=== PATIENT | male | born 1955 | race Caucasian/White ===

== ENCOUNTER → 2016-06-30 | Emergency (ER) | payer BC, OTHER ==
[~2016-06-30] MED LIST: CEPHALEXIN MONOHYDRATE 250 MG CAPSULE (FP) ONE; CEPHALEXIN MONOHYDRATE 500 MG CAPSULE (UD) PO ONE
[2016-06-30 21:43] VITALS: BMI 25.4
--- NOTE | 2016-06-30 22:13 | PDOC ---
History of Present Illness - General Chief Complaint: Urinary Problem Stated Complaint: URINARY PROBLEM/PAIN Time Seen by Provider: 06/30/16 21:37 History Source: Patient Exam Limitations: No Limitations - History of Present Illness Initial Comments: 06/30/16 22:17 61-year-old male presents to the emergency department with his daughter complaining of left scrotal pain 1 day. Patient states pain is described as 7/ 10 sharp nonradiating intermittent discomfort to the left scrotum without urinary frequency/urgency/hesitancy, hematuria, abdominal pains, flank pains, bladder or bowel dysfunction. Patient states he has recently started lifting weights for the past 2 months and is unsure whether this discomfort started while lifting weights yesterday. Patient has an appointment with his PMD in 2 days from now and his urologist in 3 days. Timing/Duration: 1-3 hours Severity: mild Associated Symptoms: reports: denies symptoms Aspirin Received prior to arrival: Yes: no aspirin today Past History - Travel Traveled outside of the country in the last 30 days: No Close contact w/someone who was outside of country & ill: No - Past Medical History Allergies/Adverse Reactions: Allergies Allergy/AdvReac Type Severity Reaction Status Date / Time No Known Allergies Allergy Verified 06/30/16 21:38 Home Medications: Ambulatory Orders Atorvastatin Ca [Lipitor] 20 mg PO HS #10 tablet 08/07/11 Levothyroxine [Synthroid -] 125 mcg PO DAILY@0700 #10 tablet 08/07/11 Metoprolol Tartrate [Lopressor -] 12.5 mg PO BID #10 tab 08/07/11 Omeprazole Magnesium [Prilosec Otc] 20 mg PO DAILY #10 tablet. 08/07/11 Anemia: No Asthma: Yes Cancer: Yes (LYMPHOMA) Cardiac Disorders: No COPD: No Kidney Stones: Yes Suicide Attempt (Hx): No Thyroid Disease: Yes - Psycho/Social/Smoking Cessation Hx Suicidal Ideation: No Smoking Status: No Smoking History: Never smoked Have you smoked in the past 12 months: No Number of Cigarettes Smoked Daily: 0 Information on smoking cessation initiated: No Hx Alcohol Use: No Drug/Substance Use Hx: No Substance Use Type: None Review of Systems - Review of Systems Able to Perform ROS?: Yes Comments:: 06/30/16 22:16 CONSTITUTIONAL: Absent: fever, chills, diaphoresis, generalized weakness, malaise, loss of appetite HEENT: Absent: rhinorrhea, nasal congestion, throat pain, throat swelling, difficulty swallowing, mouth swelling, ear pain, eye pain, visual Changes CARDIOVASCULAR: Absent: chest pain, loss of consciousness, palpitations, irregular heart rate, peripheral edema RESPIRATORY: Absent: cough, shortness of breath, dyspnea with exertion, orthopnea, wheezing, stridor, hemoptysis GASTROINTESTINAL: Absent: abdominal pain, abdominal distension, nausea, vomiting, diarrhea, constipation, melena, hematochezia GENITOURINARY: Left scrotal pain Absent: dysuria, frequency, urgency, hesitancy, hematuria, flank pain MUSCULOSKELETAL: Absent: myalgia, arthralgia, joint swelling SKIN: Absent: rash, itching, pallor HEMATOLOGIC/IMMUNOLOGIC: Absent: easy bleeding, easy bruising, lymphadenopathy, frequent infections ENDOCRINE: Absent: unexplained weight gain, unexplained weight loss, heat intolerance, cold intolerance NEUROLOGIC: Absent: headache, focal weakness or paresthesias, dizziness, unsteady gait, seizure, mental status changes, bladder or bowel incontinence PSYCHIATRIC: Absent: anxiety, depression, suicidal or homicidal ideation, hallucinations. Is the patient limited [place]er proficient: No *Physical Exam - Vital Signs Last Vital Signs Temp Pulse Resp BP Pulse Ox 99.0 F 93 H 20 147/94 99 06/30/16 21:38 06/30/16 21:38 06/30/16 21:38 06/30/16 21:38 06/30/16 21:38 - Physical Exam Comments: 06/30/16 22:16 GENERAL: Well developed, well nourished. Awake and alert. No acute distress. HEENT: Normocephalic, atraumatic. PERRLA, EOMI. No conjunctival pallor. Sclera are non- icteric. Moist mucous membranes. Oropharynx is clear. NECK: Supple. Full ROM. No JVD. Carotid pulses 2+ and symmetric, without bruits. No thyromegaly. No lymphadenopathy. CARDIOVASCULAR: Regular rate and rhythm. No murmurs, rubs, or gallops. Distal pulses are 2+ and symmetric. PULMONARY: No evidence of respiratory distress. Lungs clear to auscultation bilaterally. No wheezing, rales or rhonchi. ABDOMINAL: +left scrotum pain on palp; Neg prehn's Soft. Non-tender. Non-distended. No rebound or guarding. No organomegaly. Normoactive bowel sounds. MUSCULOSKELETAL Normal range of motion at all joints. No bony deformities or tenderness. No CVA tenderness. EXTREMITIES: No cyanosis. No clubbing. No edema. No calf tenderness. SKIN: Warm and dry. Normal capillary refill. No rashes. No jaundice. NEUROLOGICAL: Alert, awake, appropriate. Cranial nerves 2-12 intact. No deficits to light touch and temperature in face, upper extremities and lower extremities. No motor deficits in the in face, upper extremities and lower extremities. Normoreflexic in the upper and lower extremities. Normal speech. Toes are down- going bilaterally. Gait is normal without ataxia. PSYCHIATRIC: Cooperative. Good eye contact. Appropriate mood and affect. *DC/Admit/Observation/Transfer Diagnosis at time of Disposition: Epididymal mass - Discharge Dispostion Disposition: HOME Condition at time of disposition: Stable Admit: No - Referrals Referrals: STAFF,NOT ON [Primary Care Provider] - Katherine Conway MD [Non Staff, Medical] - - Patient Instructions Additional Instructions: Follow with the urologist within 48 hours. Take Tylenol for pain. You informed that you had an ultrasound of his scrotum and contents and the preliminary report shows an increased flow in the left testicle and epididymitis related to the right suggestive of epididymitis of epididymoorchitis. There is a swollen/ enlarged left epididymal head with a hypo-echo carotid nodule density in his Center measuring 1 cm. There is a heterogeneous hyperkeratotic masslike density in the center of the left testicle measuring 2 x 1.1 cm without abnormal flow. There is no evidence of testicular torsion. Return back to the emergency department for severe/persistent or worsening symptoms
[2016-06-30 23:03] LABS: URINE APPEARANCE CLEAR; URINE BILIRUBIN NEGATIVE (NEGATIVE); URINE COLOR YELLOW; URINE GLUCOSE (UA) NEGATIVE (NEGATIVE); URINE KETONE TRACE (NEGATIVE); URINE LEUK ESTERASE NEGATIVE (NEGATIVE); URINE NITRITE NEGATIVE (NEGATIVE); URINE UROBILINOGEN NEGATIVE E.U./dl (0.2-1.0)
[2016-06-30 23:22] LABS: URINE BLOOD 2+ (NEGATIVE); URINE PROTEIN 1+ (NEGATIVE)
[2016-06-30 23:25] LABS: URINE MUCUS RARE; URINE RBC 35 /hpf (0-3); URINE WBC 5 /hpf (3-5)
--- NOTE | 2016-07-01 01:13 | PDOC ---
*Physical Exam - Vital Signs Last Vital Signs Temp Pulse Resp BP Pulse Ox 99.0 F 93 H 20 147/94 99 06/30/16 21:38 06/30/16 21:38 06/30/16 21:38 06/30/16 21:38 06/30/16 21:38 ED Treatment Course - ADDITIONAL ORDERS Additional order review: Laboratory Results 06/30/16 22:49 Urine Color Yellow Urine Appearance Clear Urine pH 5.0 Ur Specific [place] 1.025 Urine Protein 1+ H Urine Glucose (UA) Negative Urine Ketones Trace H Urine Blood 2+ H Urine Nitrite Negative Urine Bilirubin Negative Urine Urobilinogen Negative Ur Leukocyte Esterase Negative Urine RBC 35 Urine WBC 5 Ur Epithelial Cells Rare Urine Mucus Rare Medical Decision Making - Medical Decision Making 07/01/16 00:58 61 yo F presenting to the ER with a complaint of left testicular pain after lifting No direct trauma No testicular swelling or erythema No fevers or chills 07/01/16 00:59 Laboratory Tests 06/30/16 22:49 Urine Blood 2+ H Urine Nitrite Negative Ur Leukocyte Esterase Negative Urine RBC 35 Urine WBC 5 U/S: Increased flow in the left testicle and epididymis relative to the right suggestive of epididymoorchitis. Swollen/enlarged epididymal head with hypoechoic nodular density in its center measuring 1 cm. "rule out abscess" There is a mass like density in th ecenter of the left testicle measuring 2 x 1.1 without abnormal flow. DD: abscess, complex collection/necrosis or mass No torsion Pt has follow up with his urologist Pt history suggestive of sudden onset of this process will discharge to home Pt to return to the Er for any other concerns or complaints *DC/Admit/Observation/Transfer Diagnosis at time of Disposition: Epididymal mass - Discharge Dispostion Disposition: HOME Condition at time of disposition: Stable - Prescriptions Prescriptions: Cephalexin Monohydrate [Keflex -] 500 mg PO Q8H #21 capsule - Referrals Referrals: STAFF,NOT ON [Primary Care Provider] - Katherine Conway MD [Non Staff, Medical] - - Patient Instructions Additional Instructions: Follow with the urologist within 48 hours. Take Tylenol for pain. You informed that you had an ultrasound of his scrotum and contents and the preliminary report shows an increased flow in the left testicle and epididymitis related to the right suggestive of epididymitis of epididymoorchitis. There is a swollen/ enlarged left epididymal head with a hypo-echo carotid nodule density in his Center measuring 1 cm. There is a heterogeneous hyperkeratotic masslike density in the center of the left testicle measuring 2 x 1.1 cm without abnormal flow. There is no evidence of testicular torsion. Return back to the emergency department for severe/persistent or worsening symptoms
[2016-07-01 02:33] VITALS: BP 156/95; PULSE 82; TEMP 98.3
--- NOTE | 2016-07-03 13:02 | PDOC ---
Patient Follow-up (Call Back) - Post ED Follow - Up Condition at time of discharge: Stable Disposition at time of original discharge: HOME Reason for Call Back: Abnwl. Microbiology - Disposition Additional Instructions/Notes: Spoke with the patient. He has seen his urologist, who started him on Ciprofloxacin for a UTI and the patient states he is already feeling better.
== END | disposition home or self-care (01) ==
LOC: JER 21:15
DX: N50.89 Other specified disorders of the male genital organs (principal); Z85.72 Personal history of non-Hodgkin lymphomas; E07.9 Disorder of thyroid, unspecified; J45.909 Unspecified asthma, uncomplicated
CPT/HCPCS: 76870-TC; 81003; 81015; 87086; 87186; 99281-25

== ENCOUNTER 2018-07-27 19:27 | Emergency (ER) | payer BC, OTHER | END 2018-07-28 01:32 | disposition home or self-care (01) | LOC: JER 07-28 01:32 | PROC: 3E0337Z Introduction of Electrolytic and Water Balance Substance into Peripheral Vein, Percutaneous Approach (ICD-10-PCS; principal; 2018-07-27) | PROC: 3E033NZ Introduction of Analgesics, Hypnotics, Sedatives into Peripheral Vein, Percutaneous Approach (ICD-10-PCS; 2018-07-27) | PROC: 3E033NZ Introduction of Analgesics, Hypnotics, Sedatives into Peripheral Vein, Percutaneous Approach (ICD-10-PCS; 2018-07-27) | PROC: 0T9B70Z Drainage of Bladder with Drainage Device, Via Natural or Artificial Opening (ICD-10-PCS; 2018-07-27) | DX: K57.32 Diverticulitis of large intestine without perforation or abscess without bleeding (principal); Z87.442 Personal history of urinary calculi; Z85.72 Personal history of non-Hodgkin lymphomas ==

== ENCOUNTER 2019-01-31 10:43 | Inpatient (IN) | payer BC, OTHER ==
[2019-01-31 10:50] VITALS: BMI 26.7
--- NOTE | 2019-01-31 11:59 | PDOC ---
History of Present Illness - General Chief Complaint: Urinary Problem Stated Complaint: BLADDER PAIN Time Seen by Provider: 01/31/19 11:21 History Source: Patient Exam Limitations: No Limitations - History of Present Illness Initial Comments: Carlin ayon is a 63 yo M w a pmh of lymphoma in remission for 14 years, right sided nephrolithiasis s/p lithotripsy (7 years ago), and diverticulitis who presents with lower abdominal pain for the past 4 days which is occasionally associated with dysuria and urgency. The patient also states he had two episodes of the chills and was worried he was getting an infection. Patient notes that he has had diminished urinary stream in the past, and has been worked up by outpatient urologist (Dr. Conway, [place]). Patient denies fevers, hematuria, flank pain, chest pain, SOB, difficulty voiding, headache, nausea, vomiting PCP: Dr. Quiroz Uro: Dr. conway PSH: Lithotripsy Social Hx: Retired security contractor. Denies smoking history, alcohol consumption, illicit drug use. Allergies: NKA, NKDA Family history: Father: prostate cancer, in 80s. Mother: noncontributory. in her 90s Past History - Past Medical History Allergies/Adverse Reactions: Allergies Allergy/AdvReac Type Severity Reaction Status Date / Time No Known Allergies Allergy Verified 01/31/19 10:49 Home Medications: Ambulatory Orders Atorvastatin Ca [Lipitor] 20 mg PO HS #10 tablet 08/07/11 Levothyroxine [Synthroid -] 125 mcg PO DAILY@0700 #10 tablet 08/07/11 Metoprolol Tartrate [Lopressor -] 12.5 mg PO BID #10 tab 08/07/11 Omeprazole Magnesium [Prilosec Otc] 20 mg PO DAILY #10 tablet. 08/07/11 Cephalexin Monohydrate [Keflex -] 500 mg PO Q8H #21 capsule 07/01/16 Sulfamethoxazole/Trimethoprim [Bactrim Ds -] 1 tab PO BID 7 Days #14 tablet metroNIDAZOLE [Flagyl -] 500 mg PO Q8H 7 Days #21 tablet 07/28/18 Anemia: No Asthma: Yes Cancer: Yes (LYMPHOMA) Cardiac Disorders: No COPD: No Kidney Stones: Yes Thyroid Disease: Yes - Immunization History Immunization Up to Date: Yes - Psycho Social/Smoking Cessation Hx Smoking Status: No Smoking History: Never smoked Have you smoked in the past 12 months: No Number of Cigarettes Smoked Daily: 0 Information on smoking cessation initiated: No Hx Alcohol Use: No Drug/Substance Use Hx: No Substance Use Type: None Review of Systems - Review of Systems Able to Perform ROS?: Yes Comments:: CONSTITUTIONAL: Present: Chills Absent: fever, no fatigue EYES: Absent: visual changes ENT: Absent: ear pain, no sore throat CARDIOVASCULAR: Absent: chest pain, no palpitations RESPIRATORY: Absent: cough, no SOB GI: Present: Abdominal pain Absent: no nausea, no vomiting, no constipation, no diarrhea GENITOURINARY: Present: dysuria, urgency Absent: no frequency, no hematuria MUSKULOSKELETAL: Absent: back pain, no arthralgia, no myalgia SKIN: Absent: rash NEURO: Absent: headache *Physical Exam - Vital Signs Last Vital Signs Temp Pulse Resp BP Pulse Ox 97.9 F 92 H 17 147/79 99 01/31/19 10:44 01/31/19 10:44 01/31/19 10:44 01/31/19 10:44 01/31/19 10:44 - Physical Exam GENERAL: Well-appearing, well-nourished. No apparent distress. HEENT: Normocephalic, atraumatic. PERRL, EOM intact. CARDIOVASCULAR: Normal S1, S2. Regular rate and rhythm. PULMONARY: No evidence of respiratory distress. Lungs clear to auscultation bilaterally. No wheezing, rales or rhonchi. ABDOMEN: There is significant suprapubid abdominal TTP. No right or left lower quadrant TTP. No CVA tenderness or flank pain. Abdomen is soft, non-distended, without rebound or guarding. EXTREMITIES: Normal ROM in all four extremities. No gross deformities. SKIN: Warm, dry. No rash NEUROLOGICAL: No focal neurological deficits. ED Treatment Course - LABORATORY CBC & Chemistry Diagram: 01/31/19 11:50 01/31/19 11:50 Medical Decision Making - Medical Decision Making Carlin ayon is a 63 yo M w a pmh of lymphoma in remission for 14 years, right sided nephrolithiasis s/p lithotripsy (7 years ago), and diverticulitis who presents with lower abdominal pain for the past 4 days which is occasionally associated with dysuria and urgency. The patient also states he had two episodes of the chills and was worried he was getting an infection. Patient notes that he has had diminished urinary stream in the past, and has been worked up by outpatient urologist (Dr. Conway, [facility]). Patient denies fevers, hematuria, flank pain, chest pain, SOB, difficulty voiding, headache, nausea, vomiting Vital Signs Temp Pulse Resp BP Pulse Ox 97.9 F 92 H 17 147/79 99 01/31/19 10:44 01/31/19 10:44 01/31/19 10:44 01/31/19 10:44 01/31/19 10:44 DDx IBNLT: UTI, pylonephritis, renal colic, hemorrhagic cystitis, electrolyte/ metabolic disturbance, GENNARO, dehydration Plan: Labs, Urine, analgesia, re-assess. Labs: Leukocytosis with left shit, elevated BUN - Will hydrate Urine: Clean and unremarkable Re-assessment: Patient persistently tender in lower abdomen Plan: CTAP CTAP: 1) pneumoperitoneum consistent w ruptured viscus 2) Suspected sigmoid diverticulitis w pelvic abscesses - Npo, IV hydration, zosyn/flagyl, pre-op labs, surgical consult Surgical consult: Dr. Patel - spoke with Dr. Patel about patient, she is aware, will follow and is coming to ED to evaluate patient. Dr. Patel spoke with Dr. Rowley and they both agree the patient is too well appearing for surgical intervention at this time. They would like the patient admitted to hospitalist for observation until sunday. Disposition: Admit to med/surg for diverticulitis Discharge - Discharge Information Problems reviewed: Yes Clinical Impression/Diagnosis: Diverticulitis of colon with perforation Qualifiers: Diverticulitis bleeding: without bleeding Qualified Code(s): K57.20 - Diverticulitis of large intestine with perforation and abscess without bleeding Condition: Stable - Admission Yes - Follow up/Referral Referrals: Jax Quiroz MD [Primary Care Provider] - - Patient Discharge Instructions - Post Discharge Activity
[2019-01-31] MEDS ORDERED: ACETAMINOPHEN 325 MG TABLET (FP) PO ONE (12:05)
[2019-01-31 12:09] LABS: BASO % 0.4 % (0-2.0); EOS % 0.7 % (0-4.5); HEMATOCRIT 46.9 % (35.4-49); HEMOGLOBIN 15.7 GM/dL (11.7-16.9); LYMPH % 9.3 % (8-40); MCH 29.5 pg (25.7-33.7); MCHC 33.6 g/dl (32.0-35.9); MEAN PLT VOLUME 11.1 fl (7.5-11.1); MONO % 8.9 % (3.8-10.2); NEUT % 80.7 % (42.8-82.8); PLATELET COUNT 130 K/MM3 (134-434); RBC 5.33 M/mm3 (4.00-5.60); RDW 13.6 % (11.9-15.9); WHITE BLOOD COUNT 11.3 K/mm3 (4.0-10.0)
--- NOTE | 2019-01-31 12:09 | PDOC ---
Attending Attestation - Resident Resident Name: Beau Ulloa - ED Attending Attestation I have performed the following: I have examined & evaluated the patient, The case was reviewed & discussed with the resident, I agree w/resident's findings & plan, Exceptions are as noted - HPI HPI: 01/31/19 12:07 Mr. Skinner is a 63 yo M w a h/o lymphoma in remission for 14 years, right sided nephrolithiasis s/p lithotripsy (7 years ago), and diverticulitis who presents with lower abdominal pain He symptoms began as back pain, he was seen by his urologist who ordered a kidney U/S (reportedly negative for hydro) He was told to increase Flomax to two pills daily (he has not done this) Last night he took 2 tabs at 6 pm Pt is scheduled for a bladder us by Urologist Pt feels as though there is a blockage of his urine flow (+) chills decreased urine flow, unable to completely empty his bladder No vomiting or diarrhea No documented fevers 01/31/19 12:14 - Physicial Exam PE: 01/31/19 12:07 GENERAL: The patient is in no acute distress. ENT: Ears normal, nares patent, oropharynx clear without exudates. Moist mucous membranes. NECK: Normal range of motion, supple LUNGS: Breath sounds equal, clear to auscultation bilaterally. No wheezes, and no crackles. HEART:Regular rate and rhythm, normal S1 and S2 without murmur, rub or gallop. ABDOMEN: Soft, suprapubic tenderness to palpation, no involuntary guarding, no rebound. EXTREMITIES: Normal range of motion, no edema. NEUROLOGICAL: Cranial nerves II through XII grossly intact. Normal speech. No focal neurological deficits. SKIN: Warm, Dry, normal turgor, no rashes or lesions noted. 01/31/19 12:17 - Critical Care Time Total Critical Care Time: 60 Critical Care Statement: The care of this patient involved high complexity decision making to prevent further life threatening deterioration of the patient 's condition and/or to evaluate & treat vital organ system(s) failure or risk of failure. - Medical Decision Making 01/31/19 12:20 Laboratory Tests 01/31/19 01/31/19 11:50 11:50 WBC 11.3 H Hgb 15.7 Hct 46.9 Plt Count 130 L D Neutrophils % 80.7 D Lymphocytes % 9.3 D Urine Blood Negative Urine Nitrite Negative Ur Leukocyte Esterase Negative 01/31/19 14:29 CT: Perforated diverticulitis, pneumoperitoneum Zosyn and Flagyl ordered We will consult surgery Will admit
[2019-01-31 12:16] LABS: URINE APPEARANCE CLEAR; URINE BILIRUBIN NEGATIVE (NEGATIVE); URINE COLOR DK YELLOW; URINE GLUCOSE (UA) NEGATIVE (NEGATIVE); URINE KETONE NEGATIVE (NEGATIVE); URINE LEUK ESTERASE NEGATIVE (NEGATIVE); URINE NITRITE NEGATIVE (NEGATIVE); URINE PROTEIN TRACE (NEGATIVE); URINE UROBILINOGEN 0.2 mg/dL (0.2-1.0)
[2019-01-31] MEDS ORDERED: ACETAMINOPHEN 325 MG TABLET (FP) ONE (12:19)
[2019-01-31 12:44] LABS: ALBUMIN 3.2 g/dl (3.4-5.0); BILIRUBIN,TOTAL 1.6 mg/dL (0.2-1); BLOOD UREA NITROGEN 22.4 mg/dL (7-18); CALCIUM 8.6 mg/dL (8.5-10.1); CREATININE 1.1 mg/dL (0.55-1.3); POTASSIUM 4.1 mmol/L (3.5-5.1)
[2019-01-31] MEDS ORDERED: SODIUM CHLORIDE 0.9% 500 ML INFUS.BAG IV ONE ×2 (13:53→14:29)
[2019-01-31] MEDS ORDERED: PIPERACILLIN/TAZOB 4.5 GM 4.5 GM in DEXTROSE 5%-WATER 100 ML IVPB ONE (14:25)
[2019-01-31] MEDS ORDERED: LACTATED RINGERS SOLUTION 1,000 ML/1,000 ML INFUS.BAG IV SCH (14:30)
[2019-01-31] MEDS ORDERED: PIPERACILLIN/TAZOB 4.5 GM 4.5 GM/100 ML BAG IVPB ONE (15:01)
--- NOTE | 2019-01-31 16:26 | CONSULT ---
Consult Consult Specialty:: General Surgery Referred by:: Tanja Ulloa Reason for Consultation:: perforated diverticulitis - History of Present Illness Chief Complaint: suprapubic pain, urinary problems, F/C History of Present Illness: 63yo M with hypothyroidism, lymphoma in remission x15 yrs, nephrolithiasis s/p lithotripsy 7yrs ago, h/o PUD many years ago, symptomatic BPH, diverticulitis ( first uncomplicated attack 07/21) treated with Bactrim/Flagyl for 7 days outpatient (declined admission), chronic upper back pain, has been experiencing chronic intermittent urinary symptoms for months (dysuria, flank pain, nocturia , incomplete emptying, frequency, urgency). About 2 weeks ago, he noted right flank pain and also suprapubic pain, though the pain seemed to move around at times, associated with subsequent subjective fevers and chills, more at night, not on consecutive days. He went to his PMD Jax Quiroz and Urologist Katherine Conway both on Sunday, and had pending bladder ultrasound and colonoscopy planned for Feb 11. Last colonoscopy was 15 years ago. He had been told prior to that to double his Flomax by Urology, but had been taking it at different times of day. Since Sunday, he was advised to take two pills at the same time in the evening, which he had been doing, without noticing much effect. He did eat about half his Thanksgiving dinner yesterday. Thought he was constipated and had hard stool yesterday, so took some Mylanta. Last night, he was hot and cold again, and today, he decided he didn't want to wait until February for the US or evaluation, so came to ER with persistent suprapubic pain. He did have a soft stool after the Mylanta. He took an aspirin this morning, which helped with the pain, as did Tylenol in the ER. In ER, he was afebrile, with wbc 11.3, left-shifted, and dehydrated by labs and UA. He had bladder/kidney US showing enlarged prostate, incomplete bladder emptying (though only 115ml prevoid -> 69ml post), and some renal cysts. He was started on IV fluids. He then had CT showing locules of pneumoperitoneum attributed to perforated sigmoid diverticulitis with two air-fluid collections, possibly abscesses, in pelvis, and enlarged prostate. IV antibiotics were also started, and surgery was asked to assess. He is seen and examined in ER holding, sitting comfortably. He indicates the pain is only suprapubic, and is mild, but notes that it initially started up at his right side, and moved around, as well as being suprapubic. He reports chronic urinary issues and upper back pain. No nausea or vomiting. He got up to void 2-3 times within an hour. He related the above history, and stated that the pain was the same as what he had felt back in July. - History Source History Provided By: Patient Limitations to Obtaining History: Poor Historian (fair historian) - Past Medical History Cardio/Vascular: No: HTN (pt denies), Hyperlipdemia (pt denies) Pulmonary: Yes: Asthma (in past) Gastrointestinal: Yes: Diverticulitis (July 2018, tx outpatient from ER ( declined admission)), Peptic Ulcer Disease (had bleeding ulcer in past) Renal/: Yes: Renal Calculi (lithotripsy 7 yrs ago) Heme/Onc: Yes: Cancer (lymphoma, in remission 15 years) Musculoskeletal: Yes: Other (chronic upper back pain, disc problems) Endocrine: Yes: Hypothyroidism - Past Surgical History Past Surgical History: Yes: Colonoscopy (15 yrs ago, none recent, was planning for early February), Upper Endoscopy (in past) Additional Surgical History: lithotripsy for right kidney stones - Alcohol/Substance Use Hx Alcohol Use: No History of Substance Use: reports: None - Smoking History Smoking history: Former smoker (3 yrs as teenager) Have you smoked in the past 12 months: No If you are a former smoker, when did you quit?: 45 yrs ago - Social History ADL: Independent Home Medications - Allergies Allergies/Adverse Reactions: Allergies Allergy/AdvReac Type Severity Reaction Status Date / Time No Known Allergies Allergy Verified 01/31/19 10:49 - Home Medications Home Medications: Ambulatory Orders Levothyroxine [Synthroid -] 125 mcg PO DAILY@0700 #10 tablet 08/07/11 Tamsulosin HCl 0.8 mg PO HS 01/31/19 Family Medical History Family Hx Cancer: Father (prostate CA, in 80s) Other Family History: mother in 90s Review of Systems - Review of Systems Constitutional: reports: Chills, Fever Eyes: reports: Other (reading glasses). denies: Recent Change in Vision HENT: denies: Difficult Swallowing, Throat Pain Neck: denies: Swollen Glands, Tenderness Cardiovascular: denies: Chest Pain, Palpitations Respiratory: denies: Cough, SOB Gastrointestinal: reports: Abdominal Pain (with hpi), Constipation (hard stool yesterday, took Mylanta, soft one after that). denies: Diarrhea, Nausea, Vomiting Genitourinary: reports: Dysuria, Flank Pain (with hpi), Frequency, Urgency, Other (incomplete emptying). denies: Burning, Hematuria, Testicular Pain Musculoskeletal: reports: Back Pain (upper, chronic). denies: Joint Pain, Muscle Pain Integumentary: denies: Change in Color, Rash Neurological: denies: Dizziness, Headache, Unsteady Gait Hematology/Lymphatic: denies: Excessive Bleeding, Swollen Glands Psychiatric: denies: Anxiety, Depression Physical Exam Vital Signs: Vital Signs Temperature 97.9 F 01/31/19 10:44 Pulse Rate 92 H 01/31/19 10:44 Respiratory Rate 17 01/31/19 10:44 Blood Pressure 147/79 01/31/19 10:44 O2 Sat by Pulse Oximetry (%) 99 01/31/19 10:44 Constitutional: Yes: Well Nourished, No Distress, Calm Eyes: Yes: Conjunctiva Clear, EOM Intact HENT: Yes: Atraumatic, Normocephalic Neck: Yes: Supple, Trachea Midline Cardiovascular: Yes: Tachycardia (mild). No: Pulse Irregular Respiratory: Yes: Regular, CTA Bilaterally Gastrointestinal: Yes: Normal Bowel Sounds, Soft, Hernia (small reducible umbilical), Tenderness (mild suprapubic focal, no rebound or guarding, no quadrant tenderness). No: Distention, Tenderness, Rebound (no peritoneal signs) ...Rectal Exam: Yes: Deferred Renal/: No: CVA Tenderness - Left, CVA Tenderness - Right Musculoskeletal: No: Joint Stiffness, Joint Swelling Extremities: No: Cool, Cyanosis Edema: No Peripheral Pulses WNL: Yes Integumentary: No: Jaundice, Rash Neurological: Yes: Alert, Oriented. No: Unsteady Gait Psychiatric: Yes: Alert, Oriented Labs: CBC, BMP 01/31/19 11:50 01/31/19 11:50 CMP Sodium 139 mmol/L (136-145) 01/31/19 11:50 Potassium 4.1 mmol/L (3.5-5.1) 01/31/19 11:50 Chloride 109 mmol/L (98-107) H 01/31/19 11:50 Carbon Dioxide 25 mmol/L (21-32) 01/31/19 11:50 Anion Gap 6 MMOL/L (8-16) L 01/31/19 11:50 BUN 22.4 mg/dL (7-18) H 01/31/19 11:50 Creatinine 1.1 mg/dL (0.55-1.3) 01/31/19 11:50 Est GFR (CKD-EPI)AfAm 81.79 01/31/19 11:50 Est GFR (CKD-EPI)NonAf 70.57 01/31/19 11:50 Random Glucose 94 mg/dL (74-106) 01/31/19 11:50 Calcium 8.6 mg/dL (8.5-10.1) 01/31/19 11:50 Total Bilirubin 1.6 mg/dL (0.2-1) H 01/31/19 11:50 AST 17 U/L (15-37) 01/31/19 11:50 ALT 41 U/L (13-61) 01/31/19 11:50 Alkaline Phosphatase 105 U/L (45-117) 01/31/19 11:50 Total Protein 7.0 g/dl (6.4-8.2) 01/31/19 11:50 Albumin 3.2 g/dl (3.4-5.0) L 01/31/19 11:50 Urine Test Results Urine Color Dk yellow 01/31/19 11:50 Urine Appearance Clear 01/31/19 11:50 Urine pH 5.0 (5.0-8.0) 01/31/19 11:50 Ur Specific [place] 1.029 (1.010-1.035) 01/31/19 11:50 Urine Protein Trace (NEGATIVE) 01/31/19 11:50 Urine Glucose (UA) Negative (NEGATIVE) 01/31/19 11:50 Urine Ketones Negative (NEGATIVE) 01/31/19 11:50 Urine Blood Negative (NEGATIVE) 01/31/19 11:50 Urine Nitrite Negative (NEGATIVE) 01/31/19 11:50 Urine Bilirubin Negative (NEGATIVE) 01/31/19 11:50 Ur Leukocyte Esterase Negative (NEGATIVE) 01/31/19 11:50 wbc with some left shift dehydrated bili slightly up Imaging - Results Cat Scan: Report Reviewed, Image Reviewed (images reviewed from today and 07/21 - sigmoid diverticulitis with likely local perforation which has sealed; locules of air above liver, but no other gross pneuomperitoneum; small air- fluid collection in pelvis possibly contained abscess near additional focus of air-fluid collection at sigmoid wall - ?intra or extraluminal? - enlarged prostate, small inguinal fat-containing hernias, fat-containing umbilical hernia , renal cysts) Ultrasound: Report Reviewed (PVR 69 with pre-void volume 115 on bladder US, enlarged prostate, renal cysts, no hydro) Problem List - Problems (1) Diverticulitis of colon with perforation Assessment/Plan: sigmoid diverticulitis with apparent sealed perforation and small pelvic abscess inaccessible to IR at this time, and too small to drain - discussed and reviewed with Dr. Cardenas admit to medicine serial exams trend labs STRICT NPO, bowel rest IV fluids - rehydrate today with crystalloid, change to maintenance tomorrow ( D5 1/2NS + 20 KCl) consult ID to continue IV antibiotics Suarez catheter to monitor output (strict I/Os), keep bladder decompressed and avoid pt straining pain meds prn - IV Tylenol if narcotics are requested, pt needs re-exam REPEAT CT abd/pelvis Sunday with PO and IV contrast - ensure enough time after PO contrast for it to reach distal sigmoid colon before scanning -- likely 2.5 - 3 hrs after done drinking or if pt starts evacuating contrast pt without peritoneal signs and only contained/sealed perforation no urgent surgical intervention indicated at this time discussed with patient that surgery could become necessary urgently or emergently, and may require temporary colostomy if needed will follow with you seen and discussed with Devyn Robins of primary team Code(s): K57.20 - DVTRCLI OF LG INT W PERFORATION AND ABSCESS W/O BLEEDING Qualifiers: Diverticulitis bleeding: without bleeding Qualified Code(s): K57.20 - Diverticulitis of large intestine with perforation and abscess without bleeding (2) Suprapubic pain Code(s): R10.2 - PELVIC AND PERINEAL PAIN (3) Dehydration Assessment/Plan: IV rehydration monitor UOP w/Suarez Code(s): E86.0 - DEHYDRATION (4) Benign prostatic hyperplasia with incomplete bladder emptying Assessment/Plan: Suarez catheter HOLD home Flomax while on strict bowel rest Code(s): N40.1 - BENIGN PROSTATIC HYPERPLASIA WITH LOWER URINARY TRACT SYMP; R39.14 - FEELING OF INCOMPLETE BLADDER EMPTYING (5) Hypothyroidism Assessment/Plan: change Synthroid to IV qam while on strict bowel rest Code(s): E03.9 - HYPOTHYROIDISM, UNSPECIFIED Qualifiers: Hypothyroidism type: unspecified Qualified Code(s): E03.9 - Hypothyroidism , unspecified (6) H/O lymphoma Code(s): Z85.79 - PRSNL HX OF [facility] OF LYMPHOID, HEMATPOETC & REL TISS
[2019-01-31 16:47] LABS: ACTIVATED PTT 28.1 SECONDS (25.2-36.5)
--- NOTE | 2019-01-31 17:11 | HP ---
<Devyn Robins - Last Filed: 01/31/19 18:44> CHIEF COMPLAINT: Abdominal pain PCP: Dr Quiroz HISTORY OF PRESENT ILLNESS: Pt is a 63 y/o M with a significant PMH of Non-Hodgkin's Lymphopma (in remission), asthma, PUD many years ago, nephrolithiasis, Diverticulitis who presented to [facility] due to abdominal pain for 4 days duration. Approximately 1 month ago pt endorse he began to experience suprapubic abdominal pain as well as right flank pain. Also endorses chills and subjective fevers. Pt states he was seen in our hospital this past July but was not admitted per EMR, he was discharged on Flagyl and Bactrim after he was diagnosed with Diverticulitis of his sigmoid colon. Pt visited his Urologist, Dr Katherine Conway and as well as his PCP Dr Quiroz who advised patient to take Tylenol for the pain. Pt currently denies chest pain, shortness of breath, nausea/vomiting, fever, numbness/ tingling, or lightheadedness. PMH as above SocialHx- Denies T/A/D SurgHx- Denies FH Father Prostate cancer Allergies: peanuts ER course was notable for: (1) Pneumoperitoneum consistent with ruptured viscous (2) Suspected sigmoid diverticulitis (3) Allergies No Known Allergies Allergy (Verified 01/31/19 10:49) HOME MEDICATIONS: Home Medications Medication Instructions Recorded Levothyroxine [Synthroid -] 125 mcg PO DAILY@0700 #10 tablet 08/07/11 Tamsulosin HCl 0.8 mg PO HS 01/31/19 REVIEW OF SYSTEMS CONSTITUTIONAL: Absent: fever, chills, diaphoresis, generalized weakness, malaise, loss of appetite, weight change HEENT: Absent: rhinorrhea, nasal congestion, throat pain, throat swelling, difficulty swallowing, mouth swelling, ear pain, eye pain, visual changes CARDIOVASCULAR: Absent: chest pain, syncope, palpitations, irregular heart rate, lightheadedness , peripheral edema RESPIRATORY: Absent: cough, shortness of breath, dyspnea with exertion, orthopnea, wheezing, stridor, hemoptysis GASTROINTESTINAL: Absent: abdominal pain, abdominal distension, nausea, vomiting, diarrhea, constipation, melena, hematochezia GENITOURINARY: Absent: dysuria, frequency, urgency, hesitancy, hematuria, flank pain, genital pain MUSCULOSKELETAL: Absent: myalgia, arthralgia, joint swelling, back pain, neck pain SKIN: Absent: rash, itching, pallor HEMATOLOGIC/IMMUNOLOGIC: Absent: easy bleeding, easy bruising, lymphadenopathy, frequent infections ENDOCRINE: Absent: unexplained weight gain, unexplained weight loss, heat intolerance, cold intolerance NEUROLOGIC: Absent: headache, focal weakness or paresthesias, dizziness, unsteady gait, seizure, mental status changes, bladder or bowel incontinence PSYCHIATRIC: Absent: anxiety, depression, suicidal or homicidal ideation, hallucinations. PHYSICAL EXAMINATION Vital Signs - 24 hr 01/31/19 10:44 Temperature 97.9 F Pulse Rate 92 H Respiratory 17 Rate Blood Pressure 147/79 O2 Sat by Pulse 99 Oximetry (%) GENERAL: NAD HEAD: Normal with no signs of trauma. EYES: EOMI Sclera Clear EARS, NOSE, THROAT: MMM NECK: Supple LUNGS: CTA b/l HEART: RRR S1S2 ABDOMEN: Not tender to deep palpation, + bowel sounds, No guarding or rigidity MUSCULOSKELETAL: FROM LOWER EXTREMITIES: No CCE NEUROLOGICAL: Cranial nerves II-XII intact. Normal speech. PSYCHIATRIC: Cooperative. Good eye contact. Appropriate mood and affect. SKIN: No rashes or lesions present Laboratory Results - last 24 hr 01/31/19 01/31/19 01/31/19 11:50 11:50 11:50 WBC 11.3 H RBC 5.33 Hgb 15.7 Hct 46.9 MCV 88.0 MCH 29.5 MCHC 33.6 RDW 13.6 Plt Count 130 L D MPV 11.1 Absolute Neuts (auto) 9.1 H Neutrophils % 80.7 D Lymphocytes % 9.3 D Monocytes % 8.9 Eosinophils % 0.7 Basophils % 0.4 Nucleated RBC % 0 PTT (Actin FS) Sodium 139 Potassium 4.1 Chloride 109 H Carbon Dioxide 25 Anion Gap 6 L BUN 22.4 H Creatinine 1.1 Est GFR (CKD-EPI)AfAm 81.79 Est GFR (CKD-EPI)NonAf 70.57 Random Glucose 94 Calcium 8.6 Total Bilirubin 1.6 H AST 17 ALT 41 Alkaline Phosphatase 105 Total Protein 7.0 Albumin 3.2 L Urine Color Dk yellow Urine Appearance Clear Urine pH 5.0 Ur Specific [place] 1.029 Urine Protein Trace Urine Glucose (UA) Negative Urine Ketones Negative Urine Blood Negative Urine Nitrite Negative Urine Bilirubin Negative Urine Urobilinogen 0.2 Ur Leukocyte Esterase Negative 01/31/19 16:18 WBC RBC Hgb Hct MCV MCH MCHC RDW Plt Count MPV Absolute Neuts (auto) Neutrophils % Lymphocytes % Monocytes % Eosinophils % Basophils % Nucleated RBC % PTT (Actin FS) 28.1 Sodium Potassium Chloride Carbon Dioxide Anion Gap BUN Creatinine Est GFR (CKD-EPI)AfAm Est GFR (CKD-EPI)NonAf Random Glucose Calcium Total Bilirubin AST ALT Alkaline Phosphatase Total Protein Albumin Urine Color Urine Appearance Urine pH Ur Specific [place] Urine Protein Urine Glucose (UA) Urine Ketones Urine Blood Urine Nitrite Urine Bilirubin Urine Urobilinogen Ur Leukocyte Esterase ASSESSMENT/PLAN: # Perforated Diverticulitis - NPO -Zosyn and Flagyl -Surgery on board- Dr Patel. appreciate recs -ID Consult -Bruce for monitoring output and bladder decompressed -Per Surgery: REPEAT CT abd/pelvis Sunday with PO and IV contrast - ensure enough time after PO contrast for it to reach distal sigmoid colon before scanning -- likely 2.5 - 3 hrs after done drinking or if pt starts evacuating contrast. #Hypothyroidism -Will switch Synthroid 125 mcg to IV Half PO dose #BPH -Will place Bruce. Will hold Flomax as bruce in. #FEN -LR@125cc/hr. Will switch to maintenance fluids D51/2NS w/ 20 mEQ tomorrow -Monitor Electrolytes -NPO #DVT ppx: -HEP SQ TID #Dispo: -Med-Surg Visit type - Emergency Visit Emergency Visit: Yes ED Registration Date: 01/31/19 Care time: The patient presented to the Emergency Department on the above date and was hospitalized for further evaluation of their emergent condition. - New Patient This patient is new to me today: Yes Date on this admission: 01/31/19 - Critical Care Critical Care patient: No ATTENDING PHYSICIAN STATEMENT I saw and evaluated the patient. I reviewed the resident's note and discussed the case with the resident. I agree with the resident's findings and plan as documented. SUBJECTIVE: OBJECTIVE: ASSESSMENT AND PLAN: <Macario Manuel - Last Filed: 02/05/19 09:05> CHIEF COMPLAINT: PCP: HISTORY OF PRESENT ILLNESS: ER course was notable for: (1) (2) (3) Recent Travel: PAST MEDICAL HISTORY: PAST SURGICAL HISTORY: Social History: Smoking: Alcohol: Drugs: Allergies No Known Allergies Allergy (Verified 01/31/19 10:49) HOME MEDICATIONS: Home Medications Medication Instructions Recorded Levothyroxine [Synthroid -] 125 mcg PO DAILY@0700 #10 tablet 08/07/11 Tamsulosin HCl 0.8 mg PO HS 01/31/19 REVIEW OF SYSTEMS CONSTITUTIONAL: Absent: fever, chills, diaphoresis, generalized weakness, malaise, loss of appetite, weight change HEENT: Absent: rhinorrhea, nasal congestion, throat pain, throat swelling, difficulty swallowing, mouth swelling, ear pain, eye pain, visual changes CARDIOVASCULAR: Absent: chest pain, syncope, palpitations, irregular heart rate, lightheadedness , peripheral edema RESPIRATORY: Absent: cough, shortness of breath, dyspnea with exertion, orthopnea, wheezing, stridor, hemoptysis GASTROINTESTINAL: Absent: abdominal pain, abdominal distension, nausea, vomiting, diarrhea, constipation, melena, hematochezia GENITOURINARY: Absent: dysuria, frequency, urgency, hesitancy, hematuria, flank pain, genital pain MUSCULOSKELETAL: Absent: myalgia, arthralgia, joint swelling, back pain, neck pain SKIN: Absent: rash, itching, pallor HEMATOLOGIC/IMMUNOLOGIC: Absent: easy bleeding, easy bruising, lymphadenopathy, frequent infections ENDOCRINE: Absent: unexplained weight gain, unexplained weight loss, heat intolerance, cold intolerance NEUROLOGIC: Absent: headache, focal weakness or paresthesias, dizziness, unsteady gait, seizure, mental status changes, bladder or bowel incontinence PSYCHIATRIC: Absent: anxiety, depression, suicidal or homicidal ideation, hallucinations. PHYSICAL EXAMINATION Vital Signs - 24 hr 01/31/19 01/31/19 01/31/19 10:44 18:28 18:34 Temperature 97.9 F 98 F Pulse Rate 92 H 79 Respiratory 17 18 Rate Blood Pressure 147/79 88/49 L O2 Sat by Pulse 99 98 Oximetry (%) 01/31/19 02/01/19 21:00 05:00 Temperature 98.5 F Pulse Rate 76 Respiratory 18 Rate Blood Pressure 145/75 O2 Sat by Pulse 98 Oximetry (%) GENERAL: Awake, alert, and fully oriented, in no acute distress. HEAD: Normal with no signs of trauma. EYES: Pupils equal, round and reactive to light, extraocular movements intact, sclera anicteric, conjunctiva clear. No lid lag. EARS, NOSE, THROAT: Ears normal, nares patent, oropharynx clear without exudates. Moist mucous membranes. NECK: Normal range of motion, supple without lymphadenopathy, JVD, or masses. LUNGS: Breath sounds equal, clear to auscultation bilaterally. No wheezes, and no crackles. No accessory muscle use. HEART: Regular rate and rhythm, normal S1 and S2 without murmur, rub or gallop. ABDOMEN: Soft, nontender, not distended, normoactive bowel sounds, no guarding, no rebound, no masses. No hepatomegaly or splenomegaly. MUSCULOSKELETAL: Normal range of motion at all joints. No bony deformities or tenderness. No CVA tenderness. UPPER EXTREMITIES: 2+ pulses, warm, well-perfused. No cyanosis. No clubbing. No peripheral edema. LOWER EXTREMITIES: 2+ pulses, warm, well-perfused. No calf tenderness. No peripheral edema. NEUROLOGICAL: Cranial nerves II-XII intact. Normal speech. Normal gait. PSYCHIATRIC: Cooperative. Good eye contact. Appropriate mood and affect. SKIN: Warm, dry, normal turgor, no rashes or lesions noted, normal capillary refill. Laboratory Results - last 24 hr 01/31/19 01/31/19 01/31/19 11:50 11:50 11:50 WBC 11.3 H RBC 5.33 Hgb 15.7 Hct 46.9 MCV 88.0 MCH 29.5 MCHC 33.6 RDW 13.6 Plt Count 130 L D MPV 11.1 Absolute Neuts (auto) 9.1 H Neutrophils % 80.7 D Lymphocytes % 9.3 D Monocytes % 8.9 Eosinophils % 0.7 Basophils % 0.4 Nucleated RBC % 0 PT with INR INR PTT (Actin FS) Sodium 139 Potassium 4.1 Chloride 109 H Carbon Dioxide 25 Anion Gap 6 L BUN 22.4 H Creatinine 1.1 Est GFR (CKD-EPI)AfAm 81.79 Est GFR (CKD-EPI)NonAf 70.57 Random Glucose 94 Calcium 8.6 Phosphorus Magnesium Total Bilirubin 1.6 H AST 17 ALT 41 Alkaline Phosphatase 105 Total Protein 7.0 Albumin 3.2 L Urine Color Dk yellow Urine Appearance Clear Urine pH 5.0 Ur Specific [place] 1.029 Urine Protein Trace Urine Glucose (UA) Negative Urine Ketones Negative Urine Blood Negative Urine Nitrite Negative Urine Bilirubin Negative Urine Urobilinogen 0.2 Ur Leukocyte Esterase Negative Blood Type Antibody Screen 01/31/19 01/31/19 02/01/19 16:18 16:18 07:53 WBC 8.7 RBC 4.76 Hgb 14.2 Hct 41.8 MCV 87.7 MCH 29.9 MCHC 34.1 RDW 13.4 Plt Count 119 L MPV 11.7 H Absolute Neuts (auto) Neutrophils % Lymphocytes % Monocytes % Eosinophils % Basophils % Nucleated RBC % PT with INR 15.00 H INR 1.27 H PTT (Actin FS) 28.1 Sodium Potassium Chloride Carbon Dioxide Anion Gap BUN Creatinine Est GFR (CKD-EPI)AfAm Est GFR (CKD-EPI)NonAf Random Glucose Calcium Phosphorus Magnesium Total Bilirubin AST ALT Alkaline Phosphatase Total Protein Albumin Urine Color Urine Appearance Urine pH Ur Specific [place] Urine Protein Urine Glucose (UA) Urine Ketones Urine Blood Urine Nitrite Urine Bilirubin Urine Urobilinogen Ur Leukocyte Esterase Blood Type A POSITIVE Antibody Screen Negative 02/01/19 02/01/19 07:53 07:53 WBC RBC Hgb Hct MCV MCH MCHC RDW Plt Count MPV Absolute Neuts (auto) Neutrophils % Lymphocytes % Monocytes % Eosinophils % Basophils % Nucleated RBC % PT with INR 18.20 H INR 1.54 H PTT (Actin FS) 28.8 Sodium 140 Potassium 4.0 Chloride 107 Carbon Dioxide 26 Anion Gap 7 L BUN 15.0 Creatinine 1.1 Est GFR (CKD-EPI)AfAm 81.79 Est GFR (CKD-EPI)NonAf 70.57 Random Glucose 84 Calcium 8.2 L Phosphorus 3.1 Magnesium 2.0 Total Bilirubin 2.9 H AST 19 ALT 39 Alkaline Phosphatase 96 Total Protein 6.1 L Albumin 2.7 L Urine Color Urine Appearance Urine pH Ur Specific [place] Urine Protein Urine Glucose (UA) Urine Ketones Urine Blood Urine Nitrite Urine Bilirubin Urine Urobilinogen Ur Leukocyte Esterase Blood Type Antibody Screen ASSESSMENT/PLAN: Patient seen on the floor; ID and sgy continue to follow. NPO, abx per ID, repeating imaging tomorrow. Problems include: -Perforated sigmoid diverticulitis, recurring (NPO, abx per ID, repeat imaging. OP scope 6-8 weeks with GI) -Hx Hypothyroidism (Holding off on IV LT4; he can miss a dose for several days. No history of profoundly uncontrolled hypothyroidism and stable) -Hx nephrolithiasis s/p remote lithotripsy (Follows with Dr. Katherine Usher) -Hx NIDDM (SSI, AC+HS if needed) -Prostatomegaly, hx BPH (Bruce inserted, moderate PVR on bladder US, continue bruce and consult uro if needed) -Hyperbilirubinemia (Fractionate bilirubin, trend CMP. Has been >2 since 2018. Consulted GI. FU Abd US to better deleate hepatobiliary structure) -Hx PUD (remote, states bleeding ulcer) -Hypoalbuminemia -Thrombocytopenia (persisting; checking HCV and HIV Ab to screen. SCDs for DVT ppx) -R/O Cirrhosis (Given coagulopathy, hypoalbuminemia, thrombocytopenia, low total protein, hyperbili will assess) Full Code ATTENDING PHYSICIAN STATEMENT I saw and evaluated the patient. I reviewed the resident's note and discussed the case with the resident. I agree with the resident's findings and plan as documented. SUBJECTIVE: OBJECTIVE: ASSESSMENT AND PLAN:
[2019-01-31 18:11] LABS: INR 1.27 (0.83-1.09)
[2019-01-31] MEDS: ACETAMINOPHEN 1000 MG/100 ML VIAL (NON FORMULARY) IVPB PRN (20:57)
[2019-01-31] MEDS ORDERED: PIPERACILLIN/TAZOBACTAM 4.5 GM VIAL IVPB ONE (22:18)
[2019-01-31] MEDS: PIPERACILLIN/TAZOB 4.5 GM 4.5 GM in DEXTROSE 5%-WATER 100 ML IVPB SCH (23:17)
[2019-02-01] MEDS ORDERED: PIPERACILLIN/TAZOB 4.5 GM 4.5 GM in DEXTROSE 5%-WATER 100 ML IVPB SCH (02:00)
[2019-02-01] MEDS ORDERED: DEXTROSE 5%-WATER 100 ML IVPB ONE ×2 (05:30→10:18)
[2019-02-01] MEDS ORDERED: PIPERACILLIN/TAZOBACTAM 4.5 GM VIAL IVPB ONE ×2 (05:30→10:18)
[2019-02-01] MEDS: PIPERACILLIN/TAZOB 4.5 GM 4.5 GM in DEXTROSE 5%-WATER 100 ML IVPB SCH ×2 (05:36→10:19)
[2019-02-01] MEDS ORDERED: LEVOTHYROXINE SODIUM 100 MCG VIAL IVPUSH SCH (07:00)
[2019-02-01 08:49] LABS: HEMATOCRIT 41.8 % (35.4-49); HEMOGLOBIN 14.2 GM/dL (11.7-16.9); MCH 29.9 pg (25.7-33.7); MCHC 34.1 g/dl (32.0-35.9); MEAN CELL VOLUME 87.7 fl (80-96); MEAN PLT VOLUME 11.7 fl (7.5-11.1); PLATELET COUNT 119 K/MM3 (134-434); RBC 4.76 M/mm3 (4.00-5.60); RDW 13.4 % (11.9-15.9); WHITE BLOOD COUNT 8.7 K/mm3 (4.0-10.0)
[2019-02-01 09:01] LABS: INR 1.54 (0.83-1.09); PROTHROMBIN TIME (PATIENT) 18.2 SEC (9.7-13.0)
[2019-02-01 09:04] LABS: ACTIVATED PTT 28.8 SECONDS (25.2-36.5)
[2019-02-01 09:21] LABS: ALBUMIN 2.7 g/dl (3.4-5.0); BILIRUBIN,TOTAL 2.9 mg/dL (0.2-1); CALCIUM 8.2 mg/dL (8.5-10.1); CREATININE 1.1 mg/dL (0.55-1.3); PHOSPHOROUS 3.1 mg/dL (2.5-4.9); TOT PROT 6.1 g/dl (6.4-8.2)
--- NOTE | 2019-02-01 10:14 | PN ---
Physical Exam: SUBJECTIVE: Patient seen and examined; pain is controlled. Discussed with surgical services last night. Per Dr. Patel we will continue IV abx per ID and continue him with strict NPO and maintenance fluids. Changing to [place] catheter will be held off due to urological history. Repeating CT with IV/PO contrast tomorrow to better visualize sigmoid colon. Dr. Patel informs me that IR is aware if the patient has a large drainable abscess and that Dr. Rowley and his service will provide coverage from Sunday Night until Sunday. He has no CP, SOB. All questions answered 10 sys ROS done and negative aside from HPI OBJECTIVE: Vital Signs Period Temp Pulse Resp BP Sys/Lambert Pulse Ox Last 24 Hr 97.9 F-98.5 F 76-92 17-18 88-147/49-79 98-99 GENERAL: The patient is awake, alert, and fully oriented, in no acute distress. HEAD: Normal with no signs of trauma. EYES: PERRL, extraocular movements intact, sclera anicteric, conjunctiva clear. No ptosis. ENT: Ears normal, nares patent, oropharynx clear without exudates, moist mucous membranes. NECK: Trachea midline, full range of motion, supple. LUNGS: Breath sounds equal, clear to auscultation bilaterally, HEART: Regular rate and rhythm, S1, S2 without murmur, rub or gallop. ABDOMEN: Soft, improved but twister tender, nondistended, diminished bowel sounds, EXTREMITIES: 2+ pulses, warm, well-perfused, no edema. NEUROLOGICAL: Cranial nerves II through XII grossly intact. Normal speech, gait not observed. PSYCH: Normal mood, normal affect. SKIN: Warm, dry, normal turgor, no rashes or lesions noted Laboratory Results - last 24 hr 01/31/19 01/31/19 01/31/19 11:50 11:50 11:50 WBC 11.3 H RBC 5.33 Hgb 15.7 Hct 46.9 MCV 88.0 MCH 29.5 MCHC 33.6 RDW 13.6 Plt Count 130 L D MPV 11.1 Absolute Neuts (auto) 9.1 H Neutrophils % 80.7 D Lymphocytes % 9.3 D Monocytes % 8.9 Eosinophils % 0.7 Basophils % 0.4 Nucleated RBC % 0 PT with INR INR PTT (Actin FS) Sodium 139 Potassium 4.1 Chloride 109 H Carbon Dioxide 25 Anion Gap 6 L BUN 22.4 H Creatinine 1.1 Est GFR (CKD-EPI)AfAm 81.79 Est GFR (CKD-EPI)NonAf 70.57 Random Glucose 94 Calcium 8.6 Phosphorus Magnesium Total Bilirubin 1.6 H AST 17 ALT 41 Alkaline Phosphatase 105 Total Protein 7.0 Albumin 3.2 L Urine Color Dk yellow Urine Appearance Clear Urine pH 5.0 Ur Specific [place] 1.029 Urine Protein Trace Urine Glucose (UA) Negative Urine Ketones Negative Urine Blood Negative Urine Nitrite Negative Urine Bilirubin Negative Urine Urobilinogen 0.2 Ur Leukocyte Esterase Negative Blood Type Antibody Screen 01/31/19 01/31/19 02/01/19 16:18 16:18 07:53 WBC 8.7 RBC 4.76 Hgb 14.2 Hct 41.8 MCV 87.7 MCH 29.9 MCHC 34.1 RDW 13.4 Plt Count 119 L MPV 11.7 H Absolute Neuts (auto) Neutrophils % Lymphocytes % Monocytes % Eosinophils % Basophils % Nucleated RBC % PT with INR 15.00 H INR 1.27 H PTT (Actin FS) 28.1 Sodium Potassium Chloride Carbon Dioxide Anion Gap BUN Creatinine Est GFR (CKD-EPI)AfAm Est GFR (CKD-EPI)NonAf Random Glucose Calcium Phosphorus Magnesium Total Bilirubin AST ALT Alkaline Phosphatase Total Protein Albumin Urine Color Urine Appearance Urine pH Ur Specific [place] Urine Protein Urine Glucose (UA) Urine Ketones Urine Blood Urine Nitrite Urine Bilirubin Urine Urobilinogen Ur Leukocyte Esterase Blood Type A POSITIVE Antibody Screen Negative 02/01/19 02/01/19 07:53 07:53 WBC RBC Hgb Hct MCV MCH MCHC RDW Plt Count MPV Absolute Neuts (auto) Neutrophils % Lymphocytes % Monocytes % Eosinophils % Basophils % Nucleated RBC % PT with INR 18.20 H INR 1.54 H PTT (Actin FS) 28.8 Sodium 140 Potassium 4.0 Chloride 107 Carbon Dioxide 26 Anion Gap 7 L BUN 15.0 Creatinine 1.1 Est GFR (CKD-EPI)AfAm 81.79 Est GFR (CKD-EPI)NonAf 70.57 Random Glucose 84 Calcium 8.2 L Phosphorus 3.1 Magnesium 2.0 Total Bilirubin 2.9 H AST 19 ALT 39 Alkaline Phosphatase 96 Total Protein 6.1 L Albumin 2.7 L Urine Color Urine Appearance Urine pH Ur Specific [place] Urine Protein Urine Glucose (UA) Urine Ketones Urine Blood Urine Nitrite Urine Bilirubin Urine Urobilinogen Ur Leukocyte Esterase Blood Type Antibody Screen Active Medications Generic Name Dose Route Start Last Admin Trade Name Rommelq PRN Reason Stop Dose Admin Acetaminophen 1,000 mg 01/31/19 17:51 01/31/19 20:57 Ofirmev Injection - IVPB 1,000 mg Q6H PRN Administration PAIN LEVEL 6-10 Lactated Ringer's 1,000 ml in 1,000 mls @ 125 mls/hr 01/31/19 14:30 01/31/19 18:02 Lactated Ringers Solution IV 125 mls/hr ASDIR MAURICIO Administration Piperacillin Sod/Tazobactam 100 mls @ 200 mls/hr 01/31/19 23:00 02/01/19 05: 36 Sod 4.5 gm/ Dextrose IVPB 02/01/19 10:29 200 mls/hr Q8H-IV MAURICIO Administration Protocol Piperacillin Sod/Tazobactam 100 mls @ 200 mls/hr 02/01/19 02:00 Sod 4.5 gm/ Dextrose IVPB Q8H-IV MAURICIO Levothyroxine Sodium 100 mcg 02/01/19 07:00 02/01/19 06:21 Synthroid Injection - IVPUSH 100 mcg DAILY@0700 MAURICIO Administration ASSESSMENT/PLAN: Patient seen on the floor; ID and sgy continue to follow. NPO, abx per ID, repeating imaging tomorrow. Problems include: -Perforated sigmoid diverticulitis, recurring (NPO, abx per ID, repeat imaging) -Hx Hypothyroidism (Holding off on IV LT4; he can miss a dose for several days. No history of profoundly uncontrolled hypothyroidism and stable) -Hx nephrolithiasis s/p remote lithotripsy (Follows with Dr. Katherine Conway -Hx NIDDM (SSI, AC+HS if needed) -Prostatomegaly, hx BPH (Bruce inserted, moderate PVR on bladder US, continue bruce and consult uro if needed) -Hyperbilirubinemia (Fractionate bilirubin, trend CMP. Has been >2 since 2018. Consulted GI. FU Abd US to better deleate hepatobiliary structure) -Hx PUD (remote, states bleeding ulcer) -Hypoalbuminemia -Thrombocytopenia (persisting; checking HCV and HIV Ab to screen. SCDs for DVT ppx) -R/O Cirrhosis (Given coagulopathy, hypoalbuminemia, thrombocytopenia, low total protein, hyperbili will assess) Full Code Visit type - Emergency Visit Emergency Visit: Yes ED Registration Date: 01/31/19 Care time: The patient presented to the Emergency Department on the above date and was hospitalized for further evaluation of their emergent condition. - New Patient This patient is new to me today: No - Critical Care Critical Care patient: No
--- NOTE | 2019-02-01 10:43 | CON.ID ---
Consult Consult Specialty:: infectious diseases Referred by:: [facility] Reason for Consultation:: abd pain,diverticulitis - History of Present Illness Chief Complaint: abd pain History of Present Illness: 63 y/o M with a significant PMH of Non-Hodgkin's Lymphopma (in remission), asthma, PUD many years ago, nephrolithiasis, Diverticulitis who presented to [facility] due to abdominal pain for 4 days duration. Approximately 1 month ago pt endorse he began to experience suprapubic abdominal pain as well as right flank pain. Also endorses chills and subjective fevers. Pt states he was seen in our hospital this past July but was not admitted per EMR, he was discharged on Flagyl and Bactrim after he was diagnosed with Diverticulitis of his sigmoid colon. patient came to the hospital and was worked up and found to ahve multiple findings currently patient looks better and says his abd pain is improving,though he is c /o of suprapubic pain - History Source History Provided By: Patient Limitations to Obtaining History: No Limitations - Past Medical History Cardio/Vascular: No: HTN (pt denies), Hyperlipdemia (pt denies) Pulmonary: Yes: Asthma (in past) Gastrointestinal: Yes: Diverticulitis (July 2018, tx outpatient from ER ( declined admission)), Peptic Ulcer Disease (had bleeding ulcer in past) Renal/: Yes: Renal Calculi (lithotripsy 7 yrs ago) Musculoskeletal: Yes: Other (chronic upper back pain, disc problems) Endocrine: Yes: Hypothyroidism - Past Surgical History Past Surgical History: Yes: Colonoscopy (15 yrs ago, none recent, was planning for early February), Upper Endoscopy (in past) Additional Surgical History: lithotripsy for right kidney stones - Alcohol/Substance Use Hx Alcohol Use: No History of Substance Use: reports: None - Smoking History Smoking history: Never smoked Have you smoked in the past 12 months: No Aproximately how many cigarettes per day: 0 If you are a former smoker, when did you quit?: 45 yrs ago - Social History ADL: Independent Home Medications - Allergies Allergies/Adverse Reactions: Allergies Allergy/AdvReac Type Severity Reaction Status Date / Time No Known Allergies Allergy Verified 01/31/19 10:49 - Home Medications Home Medications: Ambulatory Orders Levothyroxine [Synthroid -] 125 mcg PO DAILY@0700 #10 tablet 08/07/11 Tamsulosin HCl 0.8 mg PO HS 01/31/19 Review of Systems - Review of Systems Constitutional: reports: No Symptoms Eyes: reports: No Symptoms HENT: reports: No Symptoms Neck: reports: No Symptoms Cardiovascular: reports: No Symptoms Respiratory: reports: No Symptoms Gastrointestinal: reports: Abdominal Pain Genitourinary: reports: Pain Musculoskeletal: reports: No Symptoms Integumentary: reports: No Symptoms Neurological: reports: No Symptoms Endocrine: reports: No Symptoms Hematology/Lymphatic: reports: No Symptoms Psychiatric: reports: No Symptoms Physical Exam Vital Signs: Vital Signs Temperature 98.5 F 02/01/19 05:00 Pulse Rate 76 02/01/19 05:00 Respiratory Rate 18 02/01/19 05:00 Blood Pressure 145/75 02/01/19 05:00 O2 Sat by Pulse Oximetry (%) 98 01/31/19 21:00 Constitutional: Yes: Well Nourished, No Distress, Calm Eyes: Yes: Conjunctiva Clear HENT: Yes: Atraumatic, Normocephalic Neck: Yes: Supple, Trachea Midline Cardiovascular: Yes: Regular Rate and Rhythm Respiratory: Yes: Regular, CTA Bilaterally Gastrointestinal: Yes: Normal Bowel Sounds, Soft Renal/: Yes: Other (suprapubic pain) Musculoskeletal: Yes: WNL Extremities: Yes: WNL Neurological: Yes: Alert, Oriented Psychiatric: Yes: Alert, Oriented Labs: CBC, BMP 02/01/19 07:53 02/01/19 07:53 Imaging - Results Cat Scan: Report Reviewed, Image Reviewed Ultrasound: Report Reviewed, Image Reviewed Assessment/Plan Problem List - Problems (1) Diverticulitis of colon with perforation Code(s): K57.20 - DVTRCLI OF LG INT W PERFORATION AND ABSCESS W/O BLEEDING Qualifiers: Diverticulitis bleeding: without bleeding Qualified Code(s): K57.20 - Diverticulitis of large intestine with perforation and abscess without bleeding (2) Suprapubic pain Code(s): R10.2 - PELVIC AND PERINEAL PAIN (3) Dehydration Code(s): E86.0 - DEHYDRATION (4) Benign prostatic hyperplasia with incomplete bladder emptying Code(s): N40.1 - BENIGN PROSTATIC HYPERPLASIA WITH LOWER URINARY TRACT SYMP; R39.14 - FEELING OF INCOMPLETE BLADDER EMPTYING (5) Hypothyroidism Code(s): E03.9 - HYPOTHYROIDISM, UNSPECIFIED Qualifiers: Hypothyroidism type: unspecified Qualified Code(s): E03.9 - Hypothyroidism , unspecified (6) H/O lymphoma Code(s): Z85.79 - PRSNL JEFRY OF STEFFANY NOGUERA OF LYMPHOID, HEMATPOETC & REL TISS plan keep patient npo monitor closely continue iv abx hydration followup studies rest as per the team
[2019-02-01] MEDS ORDERED: LACTATED RINGERS SOLUTION 1,000 ML/1,000 ML INFUS.BAG IV SCH (14:00)
[2019-02-01] MEDS ORDERED: PHYTONADIONE 10 MG/1 ML AMP SQ ONE (14:11)
--- NOTE | 2019-02-01 15:41 | PN ---
Progress Note (short form) - Note Progress Note: Attending Surgeon Seen in f/u; covering for Dennis Patel MD; remains NPO. He has no c/o ??? VSS AF abdo-soft; flat and non tender WBC-nl IMP: stable PLAN: Continue present tx.; f/u CT scan a/p 02/02/19 and further plan pending results; d/w the patient. Juan Daniel Rowley MD FACS
[2019-02-01 16:18] LABS: ALBUMIN 3.1 g/dl (3.4-5.0); BILIRUBIN,TOTAL 3.1 mg/dL (0.2-1); BLOOD UREA NITROGEN 12.6 mg/dL (7-18); POTASSIUM 4.1 mmol/L (3.5-5.1); TOT PROT 7.1 g/dl (6.4-8.2)
--- NOTE | 2019-02-01 16:52 | PN ---
Progress Note, Physician History of Present Illness: Patient with perforated diverticulitis, clinically sealed, with small pelvic abscess, not accessible to IR. NPO/IV abx, seen and examined in bed. Also with chronic prostate issues. Does not yet have Suarez catheter. Reports pain is minimal, feeling hungry, voiding some in urinal. Stool now loose. - Current Medication List Current Medications: Active Medications Acetaminophen (Ofirmev Injection -) 1,000 mg IVPB Q6H PRN PRN Reason: PAIN LEVEL 6-10 Last Admin: 01/31/19 20:57 Dose: 1,000 mg Piperacillin Sod/Tazobactam (Sod 3.375 gm/ Dextrose) 50 mls @ 100 mls/hr IVPB Q8H-IV MAURICIO; Protocol Potassium Chloride/Dextrose/Sod Cl (D5-1/2ns+20 Meq Kcl -) 20 meq in 1,000 mls @ 125 mls/hr IV ASDIR MAURICIO - Objective Vital Signs: Vital Signs Temperature 97.8 F 02/01/19 13:26 Pulse Rate 68 02/01/19 13:26 Respiratory Rate 18 02/01/19 13:26 Blood Pressure 147/73 02/01/19 13:26 O2 Sat by Pulse Oximetry (%) 99 02/01/19 09:00 Constitutional: Yes: Well Nourished, No Distress, Calm Eyes: Yes: Conjunctiva Clear, EOM Intact HENT: Yes: Atraumatic, Normocephalic Gastrointestinal: Yes: Soft, Hernia (reducible umbilical), Tenderness (minimal suprapubic - "feels like I have to go to the bathroom"). No: Tenderness, Rebound Genitourinary: No: Suarez Present Extremities: No: Cool, Cyanosis Neurological: Yes: Alert, Oriented Labs: CBC, BMP 02/01/19 07:53 02/01/19 15:00 INR, PTT INR 1.54 (0.83-1.09) H 02/01/19 07:53 CMP Sodium 141 mmol/L (136-145) 02/01/19 15:00 Potassium 4.1 mmol/L (3.5-5.1) 02/01/19 15:00 Chloride 107 mmol/L (98-107) 02/01/19 15:00 Carbon Dioxide 25 mmol/L (21-32) 02/01/19 15:00 Anion Gap 8 MMOL/L (8-16) 02/01/19 15:00 BUN 12.6 mg/dL (7-18) 02/01/19 15:00 Creatinine 1.0 mg/dL (0.55-1.3) 02/01/19 15:00 Est GFR (CKD-EPI)AfAm 91.78 02/01/19 15:00 Est GFR (CKD-EPI)NonAf 79.19 02/01/19 15:00 Random Glucose 76 mg/dL (74-106) 02/01/19 15:00 Calcium 9.0 mg/dL (8.5-10.1) 02/01/19 15:00 Phosphorus 3.1 mg/dL (2.5-4.9) 02/01/19 07:53 Magnesium 2.0 mg/dL (1.8-2.4) 02/01/19 07:53 Total Bilirubin 3.1 mg/dL (0.2-1) H 02/01/19 15:00 Direct Bilirubin 0.6 mg/dL (0.0-0.2) H 02/01/19 15:00 AST 23 U/L (15-37) 02/01/19 15:00 ALT 46 U/L (13-61) 02/01/19 15:00 Alkaline Phosphatase 110 U/L (45-117) 02/01/19 15:00 Total Protein 7.1 g/dl (6.4-8.2) 02/01/19 15:00 Albumin 3.1 g/dl (3.4-5.0) L 02/01/19 15:00 TSH 0.45 uIU/ml (0.358-3.74) 02/01/19 15:00 Problem List - Problems (1) Diverticulitis of colon with perforation Assessment/Plan: sigmoid diverticulitis with apparent sealed perforation and small pelvic abscess inaccessible to IR at this time, and too small to drain - discussed and reviewed yesterday with Dr. Cardenas admitted to medicine serial exams trend labs STRICT NPO, bowel rest IV fluids - change to maintenance (D5 1/2NS + 20 KCl) continue IV antibiotics per ID Suarez catheter to monitor output (strict I/Os), keep bladder decompressed and avoid pt straining pain meds prn - IV Tylenol if narcotics are requested, pt needs re-exam REPEAT CT abd/pelvis Sunday with PO and IV contrast - ensure enough time after PO contrast for it to reach distal sigmoid colon before scanning -- likely 2.5 - 3 hrs after done drinking or if pt starts evacuating contrast pt without peritoneal signs and only contained/sealed perforation no urgent surgical intervention indicated at this time discussed with patient that surgery could become necessary urgently or emergently, and may require temporary colostomy if needed I will be away until SundayFebruary 05. Dr. Juan Daniel Rowley will cover for me in my absence, until my return. Code(s): K57.20 - DVTRCLI OF LG INT W PERFORATION AND ABSCESS W/O BLEEDING Qualifiers: Diverticulitis bleeding: without bleeding Qualified Code(s): K57.20 - Diverticulitis of large intestine with perforation and abscess without bleeding (2) Suprapubic pain Code(s): R10.2 - PELVIC AND PERINEAL PAIN (3) Dehydration Code(s): E86.0 - DEHYDRATION (4) Benign prostatic hyperplasia with incomplete bladder emptying Code(s): N40.1 - BENIGN PROSTATIC HYPERPLASIA WITH LOWER URINARY TRACT SYMP; R39.14 - FEELING OF INCOMPLETE BLADDER EMPTYING (5) Hypothyroidism Code(s): E03.9 - HYPOTHYROIDISM, UNSPECIFIED Qualifiers: Hypothyroidism type: unspecified Qualified Code(s): E03.9 - Hypothyroidism , unspecified (6) H/O lymphoma Code(s): Z85.79 - PRSNL HX OF MALIG NEOPLM OF LYMPHOID, HEMATPOETC & REL TISS
[2019-02-01] MEDS ORDERED: DEXTROSE 5%-WATER - 50 ML IVPB ONE (17:28)
[2019-02-01] MEDS ORDERED: PIPERACILLIN/TAZOBACTAM 3.375 GM VIAL IVPB ONE (17:28)
[2019-02-01] MEDS: D5-1/2NS+20 MEQ KCL - 20 MEQ/1,000 ML INFUS.BAG IV SCH (17:31)
[2019-02-01] MEDS: PIPERACILLIN/TAZOB 3.375 GM 3.375 GM in DEXTROSE 5%-WATER - 50 ML IVPB SCH (17:33)
--- NOTE | 2019-02-01 19:00 | CON.GI ---
Consult - History of Present Illness History of Present Illness: 63yo M with hypothyroidism, lymphoma in remission x15 yrs, nephrolithiasis s/p lithotripsy 7yrs ago, h/o PUD many years ago, symptomatic BPH, diverticulitis ( first uncomplicated attack 07/21) treated with Bactrim/Flagyl for 7 days outpatient (declined admission), chronic upper back pain, has been experiencing chronic intermittent urinary symptoms for months (dysuria, flank pain, nocturia , incomplete emptying, frequency, urgency). About 2 weeks ago, he noted right flank pain and also suprapubic pain, though the pain seemed to move around at times, associated with subsequent subjective fevers and chills, more at night, not on consecutive days. He went to his PMD Jax Quiroz and Urologist Katherine Conway both on Sunday, and had pending bladder ultrasound and colonoscopy planned for Feb 11. Last colonoscopy was 15 years ago In ER, he was afebrile, with wbc 11.3, left-shifted, and dehydrated by labs and UA. He had bladder/kidney US showing enlarged prostate, incomplete bladder emptying (though only 115ml prevoid -> 69ml post), and some renal cysts. He was started on IV fluids. He then had CT showing locules of pneumoperitoneum attributed to perforated sigmoid diverticulitis with two air-fluid collections, possibly abscesses, in pelvis, and enlarged prostate. IV antibiotics were also started, and surgery was asked to assess. - Past Medical History Cardio/Vascular: No: HTN (pt denies), Hyperlipdemia (pt denies) Pulmonary: Yes: Asthma (in past) Gastrointestinal: Yes: Diverticulitis (July 2018, tx outpatient from ER ( declined admission)), Peptic Ulcer Disease (had bleeding ulcer in past) Renal/: Yes: Renal Calculi (lithotripsy 7 yrs ago) Musculoskeletal: Yes: Other (chronic upper back pain, disc problems) Endocrine: Yes: Hypothyroidism - Past Surgical History Past Surgical History: Yes: Colonoscopy (15 yrs ago, none recent, was planning for early February), Upper Endoscopy (in past) Additional Surgical History: lithotripsy for right kidney stones - Alcohol/Substance Use Hx Alcohol Use: No History of Substance Use: reports: None - Smoking History Smoking history: Never smoked Have you smoked in the past 12 months: No Aproximately how many cigarettes per day: 0 If you are a former smoker, when did you quit?: 45 yrs ago - Social History ADL: Independent Home Medications - Allergies Allergies/Adverse Reactions: Allergies Allergy/AdvReac Type Severity Reaction Status Date / Time No Known Allergies Allergy Verified 01/31/19 10:49 - Home Medications Home Medications: Ambulatory Orders Levothyroxine [Synthroid -] 125 mcg PO DAILY@0700 #10 tablet 08/07/11 Tamsulosin HCl 0.8 mg PO HS 01/31/19 Physical Exam-GI Vital Signs: Vital Signs Temperature 97.8 F 02/01/19 13:26 Pulse Rate 68 02/01/19 13:26 Respiratory Rate 18 02/01/19 13:26 Blood Pressure 147/73 02/01/19 13:26 O2 Sat by Pulse Oximetry (%) 99 02/01/19 09:00 Constitutional: Yes: Well Nourished Eyes: Yes: Conjunctiva Clear HENT: Yes: Atraumatic Neck: Yes: Supple Cardiovascular: Yes: Regular Rate and Rhythm Respiratory: Yes: CTA Bilaterally ...Palpate: Yes: Soft. No: Firm/Rigid, Guarding, Hepatomegaly, Mass, Pulsatile Mass, Splenomegaly, Tenderness Labs: CBC, BMP 02/01/19 07:53 02/01/19 15:00 INR, PTT INR 1.54 (0.83-1.09) H 02/01/19 07:53 Problem List - Problems (1) Diverticulitis of colon with perforation Assessment/Plan: R> will continue antibiotics' IV hydration colonoscopy in [address] Quiroz Code(s): K57.20 - DVTRCLI OF LG INT W PERFORATION AND ABSCESS W/O BLEEDING Qualifiers: Diverticulitis bleeding: without bleeding Qualified Code(s): K57.20 - Diverticulitis of large intestine with perforation and abscess without bleeding
[2019-02-01] MEDS: ACETAMINOPHEN 1000 MG/100 ML VIAL (NON FORMULARY) IVPB PRN (21:58)
[2019-02-02] MEDS ORDERED: PIPERACILLIN/TAZOBACTAM 3.375 GM VIAL IVPB ONE ×4 (02:11→16:48)
[2019-02-02] MEDS ORDERED: DEXTROSE 5%-WATER - 50 ML IVPB ONE ×4 (02:11→16:48)
[2019-02-02] MEDS: PIPERACILLIN/TAZOB 3.375 GM 3.375 GM in DEXTROSE 5%-WATER - 50 ML IVPB SCH ×3 (02:20→17:00)
[2019-02-02] MEDS: D5-1/2NS+20 MEQ KCL - 20 MEQ/1,000 ML INFUS.BAG IV SCH ×2 (02:48→12:43)
[2019-02-02 07:12] LABS: ALBUMIN 2.7 g/dl (3.4-5.0); BILIRUBIN,TOTAL 1.3 mg/dL (0.2-1); BLOOD UREA NITROGEN 11.2 mg/dL (7-18); CALCIUM 8.6 mg/dL (8.5-10.1); CREATININE 1.1 mg/dL (0.55-1.3); POTASSIUM 4.3 mmol/L (3.5-5.1); TOT PROT 6.1 g/dl (6.4-8.2)
--- NOTE | 2019-02-02 10:56 | PN ---
Progress Note, Physician History of Present Illness: patient stable doing well has foleys catheter now - Current Medication List Current Medications: Active Medications Acetaminophen (Ofirmev Injection -) 1,000 mg IVPB Q6H PRN PRN Reason: PAIN LEVEL 6-10 Last Admin: 02/01/19 21:58 Dose: 1,000 mg Piperacillin Sod/Tazobactam (Sod 3.375 gm/ Dextrose) 50 mls @ 100 mls/hr IVPB Q8H-IV MAURICIO; Protocol Last Admin: 02/02/19 10:14 Dose: 100 mls/hr Potassium Chloride/Dextrose/Sod Cl (D5-1/2ns+20 Meq Kcl -) 20 meq in 1,000 mls @ 125 mls/hr IV ASDIR MAURICIO Last Admin: 02/02/19 02:48 Dose: 125 mls/hr - Objective Vital Signs: Vital Signs Temperature 97.8 F 02/02/19 06:00 Pulse Rate 65 02/02/19 06:00 Respiratory Rate 18 02/02/19 06:00 Blood Pressure 140/83 02/02/19 06:00 O2 Sat by Pulse Oximetry (%) 99 02/01/19 21:00 Constitutional: Yes: No Distress, Calm Cardiovascular: Yes: S1, S2 Respiratory: Yes: Regular, CTA Bilaterally Gastrointestinal: Yes: Normal Bowel Sounds, Soft Genitourinary: Yes: Suarez Present Musculoskeletal: Yes: WNL Extremities: Yes: WNL Neurological: Yes: Alert, Oriented Psychiatric: Yes: Alert, Oriented Labs: CBC, BMP 02/01/19 07:53 02/02/19 05:40 INR, PTT INR 1.54 (0.83-1.09) H 02/01/19 07:53 Assessment/Plan Problem List - Problems (1) Diverticulitis of colon with perforation Code(s): K57.20 - DVTRCLI OF LG INT W PERFORATION AND ABSCESS W/O BLEEDING Qualifiers: Diverticulitis bleeding: without bleeding Qualified Code(s): K57.20 - Diverticulitis of large intestine with perforation and abscess without bleeding (2) Suprapubic pain Code(s): R10.2 - PELVIC AND PERINEAL PAIN (3) Dehydration Code(s): E86.0 - DEHYDRATION (4) Benign prostatic hyperplasia with incomplete bladder emptying Code(s): N40.1 - BENIGN PROSTATIC HYPERPLASIA WITH LOWER URINARY TRACT SYMP; R39.14 - FEELING OF INCOMPLETE BLADDER EMPTYING (5) Hypothyroidism Code(s): E03.9 - HYPOTHYROIDISM, UNSPECIFIED Qualifiers: Hypothyroidism type: unspecified Qualified Code(s): E03.9 - Hypothyroidism , unspecified (6) H/O lymphoma Code(s): Z85.79 - PRSNL HX OF MALIG NEOPLM OF LYMPHOID, HEMATPOETC & REL TISS plan keep patient npo monitor closely continue iv abx hydration followup studies rest as per the team surgery and gi on case
--- NOTE | 2019-02-02 11:01 | PN ---
Physical Exam: SUBJECTIVE: Patient seen and examined. No events reported overnight. We will obtain the repeat CT scan today with delayed transit of the oral contrast to better visualize if there is any drainable abscess. Dr. Rowley is covering. Hyperbilirubinemia improved, seen by gastroenterology who recommends scoping in 6 to 8 weeks as an outpatient. Adding on an abdominal ultrasound. 10 sys ROS done and negative aside from HPI OBJECTIVE: Vital Signs Period Temp Pulse Resp BP Sys/Lambert Pulse Ox Last 24 Hr 97.8 F-98.6 F 60-73 17-18 124-149/66-85 99 GENERAL: The patient is awake, alert, and fully oriented, in no acute distress. HEAD: Normal with no signs of trauma. EYES: PERRL, extraocular movements intact, sclera anicteric, conjunctiva clear. No ptosis. ENT: Ears normal, nares patent, oropharynx clear without exudates, moist mucous membranes. NECK: Trachea midline, full range of motion, supple. LUNGS: Breath sounds equal, clear to auscultation bilaterally, HEART: Regular rate and rhythm, S1, S2 without murmur, rub or gallop. ABDOMEN: Soft, improved but glass deposition tender, nondistended, diminished bowel sounds, EXTREMITIES: 2+ pulses, warm, well-perfused, no edema. NEUROLOGICAL: Cranial nerves II through XII grossly intact. Normal speech, gait not observed. PSYCH: Normal mood, normal affect. SKIN: Warm, dry, normal turgor, no rashes or lesions noted Laboratory Results - last 24 hr 02/01/19 02/01/19 02/02/19 15:00 15:00 05:40 Sodium 141 141 Potassium 4.1 4.3 Chloride 107 108 H Carbon Dioxide 25 27 Anion Gap 8 5 L BUN 12.6 11.2 Creatinine 1.0 1.1 Est GFR (CKD-EPI)AfAm 91.78 81.79 Est GFR (CKD-EPI)NonAf 79.19 70.57 Random Glucose 76 103 Calcium 9.0 8.6 Total Bilirubin 3.1 H 1.3 H Direct Bilirubin 0.6 H AST 23 18 ALT 46 34 Alkaline Phosphatase 110 91 Total Protein 7.1 6.1 L Albumin 3.1 L 2.7 L TSH 0.45 02/02/19 05:40 Sodium Potassium Chloride Carbon Dioxide Anion Gap BUN Creatinine Est GFR (CKD-EPI)AfAm Est GFR (CKD-EPI)NonAf Random Glucose Calcium Total Bilirubin Direct Bilirubin 0.3 H AST ALT Alkaline Phosphatase Total Protein Albumin TSH Active Medications Generic Name Dose Route Start Last Admin Trade Name Freq PRN Reason Stop Dose Admin Acetaminophen 1,000 mg 01/31/19 17:51 02/01/19 21:58 Ofirmev Injection - IVPB 1,000 mg Q6H PRN Administration PAIN LEVEL 6-10 Piperacillin Sod/Tazobactam 50 mls @ 100 mls/hr 02/01/19 18:00 02/02/19 10:14 Sod 3.375 gm/ Dextrose IVPB 100 mls/hr Q8H-IV MAURICIO Administration Protocol Potassium Chloride/Dextrose/Sod Cl 20 meq in 1,000 mls @ 125 mls/hr 02/01/19 17:00 02/02/19 02:48 D5-1/2ns+20 Meq Kcl - IV 125 mls/hr ASDIR MAURICIO Administration ASSESSMENT/PLAN: Patient seen on the floor; ID and sgy continue to follow. NPO, abx per ID, repeating imaging tomorrow. Problems include: -Perforated sigmoid diverticulitis, recurring (NPO, abx per ID, repeat imaging. OP scope 6-8 weeks with GI) -Hx Hypothyroidism (Holding off on IV LT4; he can miss a dose for several days. No history of profoundly uncontrolled hypothyroidism and stable) -Hx nephrolithiasis s/p remote lithotripsy (Follows with Dr. Katherine Conway) -Hx NIDDM (SSI, AC+HS if needed) -Prostatomegaly, hx BPH (Bruce inserted, moderate PVR on bladder US, continue bruce and consult uro if needed) -Hyperbilirubinemia (Fractionate bilirubin, trend CMP. Has been >2 since 2018. Consulted GI. FU Abd US to better deleate hepatobiliary structure) -Hx PUD (remote, states bleeding ulcer) -Hypoalbuminemia -Thrombocytopenia (persisting; checking HCV and HIV Ab to screen. SCDs for DVT ppx) -R/O Cirrhosis (Given coagulopathy, hypoalbuminemia, thrombocytopenia, low total protein, hyperbili will assess) Full Code Visit type - Emergency Visit Emergency Visit: Yes ED Registration Date: 01/31/19 Care time: The patient presented to the Emergency Department on the above date and was hospitalized for further evaluation of their emergent condition. - New Patient This patient is new to me today: No - Critical Care Critical Care patient: No
[2019-02-02 18:31] LABS: BASO % 0.3 % (0-2.0); EOS % 2.6 % (0-4.5); HEMATOCRIT 49.3 % (35.4-49); HEMOGLOBIN 16.3 GM/dL (11.7-16.9); LYMPH % 12.2 % (8-40); MCH 29.6 pg (25.7-33.7); MCHC 33.1 g/dl (32.0-35.9); MEAN CELL VOLUME 89.2 fl (80-96); MEAN PLT VOLUME 11.6 fl (7.5-11.1); NEUT % 78.9 % (42.8-82.8); PLATELET COUNT 165 K/MM3 (134-434); RBC 5.52 M/mm3 (4.00-5.60); RDW 13.4 % (11.9-15.9); WHITE BLOOD COUNT 10.8 K/mm3 (4.0-10.0)
[2019-02-02 18:57] LABS: ALBUMIN 3.5 g/dl (3.4-5.0); BILIRUBIN,TOTAL 1.6 mg/dL (0.2-1); CALCIUM 9.7 mg/dL (8.5-10.1); CREATININE 1.1 mg/dL (0.55-1.3); MAGNESIUM 2.2 mg/dL (1.8-2.4); POTASSIUM 4.8 mmol/L (3.5-5.1); TOT PROT 7.8 g/dl (6.4-8.2)
[2019-02-02] MEDS: TAMSULOSIN HCL 0.4 MG CAP PO SCH (21:11)
[2019-02-02] MEDS: ACETAMINOPHEN 1000 MG/100 ML VIAL (NON FORMULARY) IVPB PRN (22:25)
[2019-02-03] MEDS: D5-1/2NS+20 MEQ KCL - 20 MEQ/1,000 ML INFUS.BAG IV SCH ×3 (01:00→18:21)
[2019-02-03] MEDS ORDERED: DEXTROSE 5%-WATER - 50 ML IVPB ONE ×3 (01:01→17:41)
[2019-02-03] MEDS ORDERED: PIPERACILLIN/TAZOBACTAM 3.375 GM VIAL IVPB ONE ×3 (01:01→17:41)
[2019-02-03] MEDS: PIPERACILLIN/TAZOB 3.375 GM 3.375 GM in DEXTROSE 5%-WATER - 50 ML IVPB SCH ×3 (02:01→18:20)
[2019-02-03 08:22] LABS: BASO % 0.6 % (0-2.0); EOS % 5.9 % (0-4.5); HEMOGLOBIN 15.1 GM/dL (11.7-16.9); LYMPH % 13.4 % (8-40); MCH 29.8 pg (25.7-33.7); MCHC 33.7 g/dl (32.0-35.9); MEAN CELL VOLUME 88.4 fl (80-96); MEAN PLT VOLUME 11.1 fl (7.5-11.1); MONO % 7.3 % (3.8-10.2); NEUT % 72.8 % (42.8-82.8); PLATELET COUNT 141 K/MM3 (134-434); RBC 5.09 M/mm3 (4.00-5.60); RDW 13.3 % (11.9-15.9); WHITE BLOOD COUNT 7.5 K/mm3 (4.0-10.0)
[2019-02-03 08:39] LABS: BILIRUBIN,TOTAL 1.4 mg/dL (0.2-1); BLOOD UREA NITROGEN 8.6 mg/dL (7-18); CALCIUM 8.9 mg/dL (8.5-10.1); CREATININE 1.1 mg/dL (0.55-1.3); MAGNESIUM 2.3 mg/dL (1.8-2.4); POTASSIUM 4.2 mmol/L (3.5-5.1)
--- NOTE | 2019-02-03 10:58 | PN ---
Progress Note, Physician History of Present Illness: patient stable doing well - Current Medication List Current Medications: Active Medications Acetaminophen (Ofirmev Injection -) 1,000 mg IVPB Q6H PRN PRN Reason: PAIN LEVEL 6-10 Last Admin: 02/02/19 22:25 Dose: 1,000 mg Piperacillin Sod/Tazobactam (Sod 3.375 gm/ Dextrose) 50 mls @ 100 mls/hr IVPB Q8H-IV MAURICIO; Protocol Last Admin: 02/03/19 09:27 Dose: 100 mls/hr Potassium Chloride/Dextrose/Sod Cl (D5-1/2ns+20 Meq Kcl -) 20 meq in 1,000 mls @ 125 mls/hr IV ASDIR MAURICIO Last Admin: 02/03/19 09:25 Dose: 125 mls/hr Levothyroxine Sodium (Synthroid -) 125 mcg PO DAILY@0700 MAURICIO Tamsulosin HCl (Flomax -) 0.8 mg PO HS MAURICIO Last Admin: 02/02/19 21:11 Dose: 0.8 mg - Objective Vital Signs: Vital Signs Temperature 97.8 F 02/03/19 06:00 Pulse Rate 77 02/03/19 06:00 Respiratory Rate 18 02/03/19 06:00 Blood Pressure 136/75 02/03/19 06:00 O2 Sat by Pulse Oximetry (%) 99 02/02/19 21:00 Constitutional: Yes: No Distress, Calm Cardiovascular: Yes: S1, S2 Respiratory: Yes: Regular, CTA Bilaterally Gastrointestinal: Yes: Normal Bowel Sounds, Soft Genitourinary: Yes: Suarez Present Musculoskeletal: Yes: WNL Extremities: Yes: WNL Neurological: Yes: Alert, Oriented Psychiatric: Yes: Alert, Oriented Labs: CBC, BMP 02/03/19 06:30 02/03/19 06:30 INR, PTT INR 1.54 (0.83-1.09) H 02/01/19 07:53 - ....Imaging Cat Scan: Report Reviewed, Image Reviewed Assessment/Plan Problem List - Problems (1) Diverticulitis of colon with perforation Code(s): K57.20 - DVTRCLI OF LG INT W PERFORATION AND ABSCESS W/O BLEEDING Qualifiers: Diverticulitis bleeding: without bleeding Qualified Code(s): K57.20 - Diverticulitis of large intestine with perforation and abscess without bleeding (2) Suprapubic pain Code(s): R10.2 - PELVIC AND PERINEAL PAIN (3) Dehydration Code(s): E86.0 - DEHYDRATION (4) Benign prostatic hyperplasia with incomplete bladder emptying Code(s): N40.1 - BENIGN PROSTATIC HYPERPLASIA WITH LOWER URINARY TRACT SYMP; R39.14 - FEELING OF INCOMPLETE BLADDER EMPTYING (5) Hypothyroidism Code(s): E03.9 - HYPOTHYROIDISM, UNSPECIFIED Qualifiers: Hypothyroidism type: unspecified Qualified Code(s): E03.9 - Hypothyroidism , unspecified (6) H/O lymphoma Code(s): Z85.79 - PRSNL HX OF MALIG NEOPLM OF LYMPHOID, HEMATPOETC & REL TISS plan keep patient npo monitor closely continue iv abx hydration followup studies rest as per the team surgery and gi on case
[2019-02-03] MEDS: LEVOTHYROXINE NA 125 MCG TABLET (FP) PO SCH (11:21)
--- NOTE | 2019-02-03 14:52 | PN ---
Progress Note (short form) - Note Progress Note: Hospitalist Medicine Pt upset that he is not allowed to eat. "I just want to make my own decision." Case d/w pt PMD, Dr. Quiroz today, and re-explained to pt, and son at bedside. Expressed verbal understanding of plan. Vitals 02/03/19 14:36 Temperature 97.9 F Pulse Rate 67 Respiratory 18 Rate Blood Pressure 150/78 Physical Exam general: resting comfortably, in NAD HEENT: NCAT neck: supple cardio: S1, S2, RRR. no r/m/g pulm: CTA B/l, limited resp abdomen: nontender, nondistended LE: 2+ pulses, no edema neuro: reagent tender 2-12 grossly intact Laboratory Tests 02/03/19 02/03/19 06:30 06:30 WBC 7.5 Hgb 15.1 Hct 45.0 Plt Count 141 Sodium 140 Potassium 4.2 Chloride 108 H Carbon Dioxide 28 BUN 8.6 Creatinine 1.1 Total Bilirubin 1.4 H AST 36 ALT 54 Alkaline Phosphatase 110 Total Protein 7.0 Albumin 3.0 L Microbiology 01/31/19 11:50 Urine - Urine Clean Catch Urine Culture - Final NO GROWTH OBTAINED Imaging 01/31/19: Renal/bladder sono: morphologically normal kidneys and urinary bladder with no evidence of hydronephrosis or acute pathology. moderate post void residual. prostatic hypertrophy. 01/31/19: CTAP: pneumoperitoneum with ruptured viscus, suspected sigmoid diverticulitis with pelvic abscesses. clinical correlation and follow up recommended and 02/02/19: CTAP: complex collection in pelvic region compatible with diverticular abscess unchanged in size from prior study. previously noted small droplets of air compatible with pneumoperitoneum have resolved. Assessment/Plan 63 yo M w a h/o lymphoma in remission for 14 years, right sided nephrolithiasis s/p lithotripsy (7 years ago), and diverticulitis who presented with lower abdominal pain and was found to have perforated viscus/ perforated sigmoid diverticulitis. #Perforated sigmoid diverticulitis w / abscess collection -c/w zosyn (02/01) for gram (-), anaerobic coverage -IV tylenol for pain/fever -per sx team d/w IR, abscess is not accessible via procedure. to keep NPO for now -ID: Dr. Wyatt -Sx: Dr. Rowley until 02/05, Dr. Patel coverage after -c/w NPO, IVF -bruce for bladder decompression -will need colonoscopy in 6-8 weeks w/ Dr. Quiroz per GI #NIDDM -c/w ISS, BGM ACHS #BPH -c/w flomax -c/w bruce #hypothyroid -c/w synthroid #F/E/N f/u ECHO. c/w d51/2ns +20KCl 125 cc/hr per sx continue to follow lytes NPO #PPX DVT: SCD's #Dispo cont'd monitoring on med-surg plan per sx will need colonoscopy in 6-8 weeks w/ Dr. Quiroz per GI <Paige Owusu - Last Filed: 02/03/19 15:45> - Note Progress Note: Seen and examined; agree with above aside from as supplemented below by myself. Personally verified all historical information and rivera PE findings. Independently reviewed all labs and diagnostics. I discussed the case at length with the resident and consulting services. All questions answered. 10 sys ROS done and negative aside from hpi; tried to complete as best we could with underlying schizophrenia vs labs imagaing reviewed nad aao resting in bed nc at eomi perrla HR wnl, +s1/2 CTAB, w/ sym exp NT ND +BS CN2-12 wnl, no fnd tangential thoughts ASSESSMENT/PLAN: Patient seen on the floor; ID and sgy continue to follow. NPO, abx per ID, repeating imaging tomorrow. Problems include: -Perforated sigmoid diverticulitis, recurring (NPO, abx per ID, repeat imaging. OP scope 6-8 weeks with GI) -Hx Hypothyroidism (Holding off on IV LT4; he can miss a dose for several days. No history of profoundly uncontrolled hypothyroidism and stable) -Hx nephrolithiasis s/p remote lithotripsy (Follows with Dr. Katherine Conway) -Hx NIDDM (SSI, AC+HS if needed) -Prostatomegaly, hx BPH (Bruce inserted, moderate PVR on bladder US, continue bruce and consult uro if needed) -Hyperbilirubinemia (Fractionate bilirubin, trend CMP. Has been >2 since 2018. Consulted GI. FU Abd US to better deleate hepatobiliary structure) -Hx PUD (remote, states bleeding ulcer) -Hypoalbuminemia -Thrombocytopenia (persisting; checking HCV and HIV Ab to screen. SCDs for DVT ppx) -R/O Cirrhosis (Given coagulopathy, hypoalbuminemia, thrombocytopenia, low total protein, hyperbili will assess) Full Code <Macario Manuel - Last Filed: 02/05/19 09:06>
--- NOTE | 2019-02-03 15:17 | PN ---
Progress Note (short form) - Note Progress Note: Pt seen and examined on AM rounds. Reports he is feeling well. Denies abdo pain. Reports normal BM yesterday, passing flatus. Ambulating without issue. NPO Case d/w IR, Dr Sanders. Abscess not accessible to drainage at this time due to size/location. Broad spectrum abx per ID Keep npo at this time Will continue to follow d.w attending Dr Rowley
--- NOTE | 2019-02-03 16:24 | ECHO ---
Name: DESHAUNMICHELLE Exam:Adult Echocardiogram Study Date: 02/03/2019 11:53 AM Age: 63 yrs Height: 69 in Weight: 180 lb BSA: 2.0 m2 MMode/2D Measurements & Calculations IVSd: 1.0 cm Ao root diam: 3.1 cm LVIDd: 4.5 cm LA dimension: 3.4 cm LVIDs: 3.0 cm LVPWd: 1.1 cm LVPWs: 1.2 cm EDV(Teich): 92.9 ml ESV(Teich): 36.0 ml LAV (MOD-bp): 46.0 ml Doppler Measurements & Calculations MV E max navarro: 64.2 cm/sec Ao V2 max: 121.1 cm/sec MV A max navarro: 80.0 cm/sec Ao max P.9 mmHg MV E/A: 0.80 MV dec time: 0.25 sec LV V1 max P.8 mmHg TR max navarro: 254.5 cm/sec LV V1 max: 130.8 cm/sec TR max P.9 mmHg PA V2 max: 114.7 cm/sec Med Peak E' Navarro: 4.6 cm/sec PA max P.3 mmHg Med E/e': 13.9 Lat Peak E' Navarro: 8.0 cm/sec Lat E/e': 8.0 Procedure A complete two-dimensional transthoracic echocardiogram was performed (2D, M-mode, Doppler and color flow Doppler). Left Ventricle The left ventricle is normal in size. Left ventricular systolic function is normal. Ejection Fraction = 60- 65%. Grade I diastolic dysfunction, (abnormal relaxation pattern). Ratio E/E'= 14. No regional wall m otion abnormalities noted. Right Ventricle The right ventricle is normal size. The right ventricular systolic function is normal. RV systolic TD I is 17 cm/s. Atria The left atrial size is normal. Right atrial size is normal. Mitral Valve The mitral valve is normal in structure and function. There is mild mitral regurgitation. Tricuspid Valve The tricuspid valve is normal in structure and function. There is mild to moderate tricuspid regurgit ation. Right ventricular systolic pressure is normal. Aortic Valve The aortic valve is normal in structure and function. No aortic regurgitation is present. Pulmonic Valve The pulmonic valve is not well visualized. Great Vessels The aortic root is normal size. Pericardium/Pleura There is no pericardial effusion. Interpretation Summary The left ventricle is normal in size. Left ventricular systolic function is normal. No regional wall motion abnormalities noted. Ejection Fraction = 60-65%. Grade I diastolic dysfunction, (abnormal relaxation pattern). Ratio E/E'= 14 The right ventricular systolic function is normal. The left atrial size is normal. Right atrial size is normal. There is mild mitral regurgitation. There is mild to moderate tricuspid regurgitation. Right ventricular systolic pressure is normal. There is no pericardial effusion. Nicolás Xavier MD 02/03/2019 04:23 PM
[2019-02-03] MEDS: TAMSULOSIN HCL 0.4 MG CAP PO SCH (21:52)
[2019-02-04] MEDS ORDERED: DEXTROSE 5%-WATER - 50 ML IVPB ONE ×3 (01:19→16:56)
[2019-02-04] MEDS ORDERED: PIPERACILLIN/TAZOBACTAM 3.375 GM VIAL IVPB ONE ×3 (01:19→16:56)
[2019-02-04] MEDS: ACETAMINOPHEN 1000 MG/100 ML VIAL (NON FORMULARY) IVPB PRN (01:25)
[2019-02-04] MEDS: PIPERACILLIN/TAZOB 3.375 GM 3.375 GM in DEXTROSE 5%-WATER - 50 ML IVPB SCH ×3 (01:26→17:11)
[2019-02-04] MEDS: LEVOTHYROXINE NA 125 MCG TABLET (FP) PO SCH (06:09)
[2019-02-04] MEDS: D5-1/2NS+20 MEQ KCL - 20 MEQ/1,000 ML INFUS.BAG IV SCH ×2 (06:16→17:11)
[2019-02-04 08:31] LABS: BASO % 0.7 % (0-2.0); EOS % 8.1 % (0-4.5); HEMATOCRIT 45.1 % (35.4-49); LYMPH % 14.5 % (8-40); MCH 29.4 pg (25.7-33.7); MCHC 33.2 g/dl (32.0-35.9); MEAN CELL VOLUME 88.7 fl (80-96); MEAN PLT VOLUME 10.9 fl (7.5-11.1); MONO % 6.3 % (3.8-10.2); NEUT % 70.4 % (42.8-82.8); PLATELET COUNT 132 K/MM3 (134-434); RBC 5.08 M/mm3 (4.00-5.60); RDW 13.3 % (11.9-15.9); WHITE BLOOD COUNT 6.2 K/mm3 (4.0-10.0)
[2019-02-04 08:38] LABS: INR 1.34 (0.83-1.09); PROTHROMBIN TIME (PATIENT) 15.8 SEC (9.7-13.0)
[2019-02-04 09:31] LABS: BLOOD UREA NITROGEN 8.4 mg/dL (7-18); CALCIUM 8.7 mg/dL (8.5-10.1); CREATININE 1.2 mg/dL (0.55-1.3); MAGNESIUM 2.2 mg/dL (1.8-2.4); PHOSPHOROUS 3.4 mg/dL (2.5-4.9); POTASSIUM 4.1 mmol/L (3.5-5.1)
--- NOTE | 2019-02-04 11:16 | PN ---
Progress Note, Physician History of Present Illness: stable no new issues - Current Medication List Current Medications: Active Medications Acetaminophen (Ofirmev Injection -) 1,000 mg IVPB Q6H PRN PRN Reason: PAIN LEVEL 6-10 Last Admin: 02/04/19 01:25 Dose: 1,000 mg Piperacillin Sod/Tazobactam (Sod 3.375 gm/ Dextrose) 50 mls @ 100 mls/hr IVPB Q8H-IV MAURICIO; Protocol Last Admin: 02/04/19 09:15 Dose: 100 mls/hr Potassium Chloride/Dextrose/Sod Cl (D5-1/2ns+20 Meq Kcl -) 20 meq in 1,000 mls @ 125 mls/hr IV ASDIR MAURICIO Last Admin: 02/04/19 06:16 Dose: 125 mls/hr Levothyroxine Sodium (Synthroid -) 125 mcg PO DAILY@0700 [facility] Last Admin: 02/04/19 06:09 Dose: 125 mcg Tamsulosin HCl (Flomax -) 0.8 mg PO HS [facility] Last Admin: 02/03/19 21:52 Dose: 0.8 mg - Objective Vital Signs: Vital Signs Temperature 97.8 F 02/04/19 10:00 Pulse Rate 62 02/04/19 10:00 Respiratory Rate 18 02/04/19 10:00 Blood Pressure 140/76 02/04/19 10:00 O2 Sat by Pulse Oximetry (%) 96 02/03/19 21:00 Constitutional: Yes: No Distress, Calm Cardiovascular: Yes: S1, S2 Respiratory: Yes: Regular, CTA Bilaterally Gastrointestinal: Yes: Normal Bowel Sounds, Soft Musculoskeletal: Yes: WNL Extremities: Yes: WNL Neurological: Yes: Alert, Oriented Psychiatric: Yes: Alert, Oriented Labs: CBC, BMP 02/04/19 07:38 02/04/19 07:38 INR, PTT INR 1.34 (0.83-1.09) H 02/04/19 07:38 Assessment/Plan Problem List - Problems (1) Diverticulitis of colon with perforation Code(s): K57.20 - DVTRCLI OF LG INT W PERFORATION AND ABSCESS W/O BLEEDING Qualifiers: Diverticulitis bleeding: without bleeding Qualified Code(s): K57.20 - Diverticulitis of large intestine with perforation and abscess without bleeding (2) Suprapubic pain Code(s): R10.2 - PELVIC AND PERINEAL PAIN (3) Dehydration Code(s): E86.0 - DEHYDRATION (4) Benign prostatic hyperplasia with incomplete bladder emptying Code(s): N40.1 - BENIGN PROSTATIC HYPERPLASIA WITH LOWER URINARY TRACT SYMP; R39.14 - FEELING OF INCOMPLETE BLADDER EMPTYING (5) Hypothyroidism Code(s): E03.9 - HYPOTHYROIDISM, UNSPECIFIED Qualifiers: Hypothyroidism type: unspecified Qualified Code(s): E03.9 - Hypothyroidism , unspecified (6) H/O lymphoma Code(s): Z85.79 - PRSNL HX OF MALIG NEOPLM OF LYMPHOID, HEMATPOETC & REL TISS plan continue iv abx hydration followup studies rest as per the team surgery and gi on case
--- NOTE | 2019-02-04 11:31 | PN ---
Progress Note (short form) - Note Progress Note: Attending Surgeon Seen in f/u; no c/o; passing flatus BM's VSS AF abdo-soft and non tender; FC remains in place WBC-nl CT scan 02/03/19 reviewed and the collection is not amenable to IRD IMP: resolving recurrent sigmoid diverticultis PLAN: Continue present tx.; trial of clear liquids; d/c FC; further plan as per Dr. Josephine Patel who will resume care today; he should ideally have an elective sigmoid colon resection once the acute process has resolved. Juan Daniel Rowley MD FACS
--- NOTE | 2019-02-04 12:01 | PN ---
Progress Note (short form) - Note Progress Note: Hospitalist Medicine States that he is feeling well. Reiterated plan to pt this AM, all questions answered Vitals 02/04/19 10:00 Temperature 97.8 F Pulse Rate 62 Respiratory 18 Rate Blood Pressure 140/76 Physical Exam general: resting comfortably, in NAD. pleasant HEENT: NCAT neck: supple cardio: S1, S2, RRR. no r/m/g pulm: CTA B/l, no accessory m usage abdomen: nontender, nondistended LE: 2+ pulses, no edema neuro: audio visual manager 2-12 grossly intact Laboratory Tests 02/04/19 02/04/19 02/04/19 07:38 07:38 07:38 WBC 6.2 Hgb 15.0 Hct 45.1 Plt Count 132 L PT with INR 15.80 H INR 1.34 H Sodium 142 Potassium 4.1 Chloride 109 H Carbon Dioxide 26 BUN 8.4 Creatinine 1.2 Random Glucose 86 Microbiology 01/31/19 11:50 Urine - Urine Clean Catch Urine Culture - Final NO GROWTH OBTAINED Imaging 01/31/19: Renal/bladder sono: morphologically normal kidneys and urinary bladder with no evidence of hydronephrosis or acute pathology. moderate post void residual. prostatic hypertrophy. 01/31/19: CTAP: pneumoperitoneum with ruptured viscus, suspected sigmoid diverticulitis with pelvic abscesses. clinical correlation and follow up recommended and 02/02/19: CTAP: complex collection in pelvic region compatible with diverticular abscess unchanged in size from prior study. previously noted small droplets of air compatible with pneumoperitoneum have resolved. Assessment/Plan 63 yo M w a h/o lymphoma in remission for 14 years, right sided nephrolithiasis s/p lithotripsy (7 years ago), and diverticulitis who presented with lower abdominal pain and was found to have perforated viscus/ perforated sigmoid diverticulitis. #Perforated sigmoid diverticulitis w / abscess collection -c/w zosyn (02/01) for gram (-), anaerobic coverage -IV tylenol for pain/fever -per sx team d/w IR, abscess is not accessible via procedure. however plan will be decided per sx -diet advanced to clears, per sx recs -ID: Dr. Wyatt -Sx: Dr. Rowley until 02/05, Dr. Patel coverage after -still on IVF -bruce d/c per sx recs -will need colonoscopy in 6-8 weeks w/ Dr. Quiroz per GI -will likely need elective sigmoid resection once acute process resolves #NIDDM -c/w ISS, BGM ACHS #BPH -c/w flomax -bruce has been d/c -bladder scan ASDIR #hypothyroid -c/w synthroid #F/E/N f/u ECHO. c/w d51/2ns +20KCl 125 cc/hr per sx continue to follow lytes clear liquid trial #PPX DVT: SCD's #Dispo cont'd monitoring on med-surg plan per sx concerning abscess will need colonoscopy in 6-8 weeks w/ Dr. Quiroz per GI will likely need elective sigmoid resection once acute process resolves <Paige Owusu - Last Filed: 02/04/19 15:01> - Note Progress Note: Seen and examined; agree with above aside from as supplemented below by myself. Personally verified all historical information and rivera PE findings. Independently reviewed all labs and diagnostics. I discussed the case at length with the resident and consulting services. All questions answered. Pain improved; was very inquisitive but actually apologetic at a point to us for any ongoing difficulty. No n/v/d. Abdominal pain is controlled with improved objective PE findings 10 sys ROS done and negative aside from hpi; tried to complete as best we could with underlying schizophrenia vs labs imagaing reviewed nad aao ambulating without issues nc at eomi perrla HR wnl, +s1/2 CTAB, w/ sym exp Minimally tender ND +BS CN2-12 wnl, no fnd tangential thoughts ASSESSMENT/PLAN: Patient seen on the floor; ID and sgy continue to follow. NPO, abx per ID, repeating imaging tomorrow. Problems include: -Perforated sigmoid diverticulitis, recurring (Diet per sgy, abx per ID, OP scope 6-8 weeks with GI. No IR drainable lesion) -Hx Hypothyroidism (Holding off on IV LT4; he can miss a dose for several days. No history of profoundly uncontrolled hypothyroidism and stable) -Hx nephrolithiasis s/p remote lithotripsy (Follows with Dr. Katherine Conway) -Hx NIDDM (SSI, AC+HS if needed) -Prostatomegaly, hx BPH (Voiding trial.) -Hyperbilirubinemia (Fractionate bilirubin, trend CMP. Has been >2 since 2018. Consulted GI. FU Abd US to better deleate hepatobiliary structure) -Hx PUD (remote, states bleeding ulcer) -Hypoalbuminemia -Thrombocytopenia (persisting; checking HCV and HIV Ab to screen. SCDs for DVT ppx) -R/O Cirrhosis (Given coagulopathy, hypoalbuminemia, thrombocytopenia, low total protein, hyperbili will assess) Full Code <Macario Manuel - Last Filed: 02/05/19 09:09>
[2019-02-04] MEDS: TAMSULOSIN HCL 0.4 MG CAP PO SCH (21:49)
[2019-02-05] MEDS: PIPERACILLIN/TAZOB 3.375 GM 3.375 GM in DEXTROSE 5%-WATER - 50 ML IVPB SCH ×3 (02:20→17:23)
[2019-02-05] MEDS ORDERED: DEXTROSE 5%-WATER - 50 ML IVPB ONE ×3 (04:18→16:39)
[2019-02-05] MEDS ORDERED: PIPERACILLIN/TAZOBACTAM 3.375 GM VIAL IVPB ONE ×4 (04:18→16:41)
[2019-02-05] MEDS: LEVOTHYROXINE NA 125 MCG TABLET (FP) PO SCH (06:15)
[2019-02-05] MEDS ORDERED: D5-1/2NS+20 MEQ KCL - 20 MEQ/1,000 ML INFUS.BAG IV SCH ×2 (07:15→11:32)
[2019-02-05 07:45] LABS: BASO % 0.7 % (0-2.0); EOS % 6.3 % (0-4.5); HEMATOCRIT 47.4 % (35.4-49); HEMOGLOBIN 15.9 GM/dL (11.7-16.9); LYMPH % 15.4 % (8-40); MCH 29.7 pg (25.7-33.7); MCHC 33.5 g/dl (32.0-35.9); MEAN CELL VOLUME 88.8 fl (80-96); MEAN PLT VOLUME 10.5 fl (7.5-11.1); MONO % 6.5 % (3.8-10.2); NEUT % 71.1 % (42.8-82.8); PLATELET COUNT 154 K/MM3 (134-434); RBC 5.34 M/mm3 (4.00-5.60); RDW 13.3 % (11.9-15.9); WHITE BLOOD COUNT 9.3 K/mm3 (4.0-10.0)
[2019-02-05 08:18] LABS: BLOOD UREA NITROGEN 5.7 mg/dL (7-18); CALCIUM 8.7 mg/dL (8.5-10.1); CREATININE 1.2 mg/dL (0.55-1.3); MAGNESIUM 2.1 mg/dL (1.8-2.4); PHOSPHOROUS 3.1 mg/dL (2.5-4.9); POTASSIUM 3.6 mmol/L (3.5-5.1)
--- NOTE | 2019-02-05 11:33 | PN ---
Progress Note, Physician History of Present Illness: stable improving abd pain much better - Current Medication List Current Medications: Active Medications Acetaminophen (Ofirmev Injection -) 1,000 mg IVPB Q6H PRN PRN Reason: PAIN LEVEL 6-10 Last Admin: 02/04/19 01:25 Dose: 1,000 mg Piperacillin Sod/Tazobactam (Sod 3.375 gm/ Dextrose) 50 mls @ 100 mls/hr IVPB Q8H-IV MAURIICO; Protocol Last Admin: 02/05/19 09:11 Dose: 100 mls/hr Potassium Chloride/Dextrose/Sod Cl (D5-1/2ns+20 Meq Kcl -) 20 meq in 1,000 mls @ 75 mls/hr IV ASDIR MAURICIO Last Admin: 02/05/19 09:11 Dose: 75 mls/hr Levothyroxine Sodium (Synthroid -) 125 mcg PO DAILY@0700 [facility] Last Admin: 02/05/19 06:15 Dose: 125 mcg Tamsulosin HCl (Flomax -) 0.8 mg PO HS [facility] Last Admin: 02/04/19 21:49 Dose: 0.8 mg - Objective Vital Signs: Vital Signs Temperature 98.2 F 02/05/19 10:00 Pulse Rate 84 02/05/19 10:00 Respiratory Rate 18 02/05/19 10:00 Blood Pressure 154/85 02/05/19 10:00 O2 Sat by Pulse Oximetry (%) 97 02/04/19 21:00 Constitutional: Yes: No Distress, Calm Cardiovascular: Yes: Regular Rate and Rhythm Respiratory: Yes: Regular, CTA Bilaterally Gastrointestinal: Yes: Normal Bowel Sounds, Soft Musculoskeletal: Yes: WNL Extremities: Yes: WNL Neurological: Yes: Alert, Oriented Psychiatric: Yes: Alert, Oriented Labs: CBC, BMP 02/05/19 06:40 02/05/19 06:40 INR, PTT INR 1.34 (0.83-1.09) H 02/04/19 07:38 Assessment/Plan Problem List - Problems (1) Diverticulitis of colon with perforation Code(s): K57.20 - DVTRCLI OF LG INT W PERFORATION AND ABSCESS W/O BLEEDING Qualifiers: Diverticulitis bleeding: without bleeding Qualified Code(s): K57.20 - Diverticulitis of large intestine with perforation and abscess without bleeding (2) Suprapubic pain Code(s): R10.2 - PELVIC AND PERINEAL PAIN (3) Dehydration Code(s): E86.0 - DEHYDRATION (4) Benign prostatic hyperplasia with incomplete bladder emptying Code(s): N40.1 - BENIGN PROSTATIC HYPERPLASIA WITH LOWER URINARY TRACT SYMP; R39.14 - FEELING OF INCOMPLETE BLADDER EMPTYING (5) Hypothyroidism Code(s): E03.9 - HYPOTHYROIDISM, UNSPECIFIED Qualifiers: Hypothyroidism type: unspecified Qualified Code(s): E03.9 - Hypothyroidism , unspecified (6) H/O lymphoma Code(s): Z85.79 - PRSNL HX OF MALIG NEOPLM OF LYMPHOID, HEMATPOETC & REL TISS plan continue iv abx can change to oral once surgery clears hydration followup studies rest as per the team
--- NOTE | 2019-02-05 11:37 | PN ---
Progress Note (short form) - Note Progress Note: Hospitalist Medicine Ambulating freely down the hallway. Tolerating clear liquid diet. Vitals 02/05/19 10:00 Temperature 98.2 F Pulse Rate 84 Respiratory 18 Rate Blood Pressure 154/85 Physical Exam general: resting comfortably, in NAD. pleasant HEENT: NCAT neck: supple cardio: S1, S2, RRR. 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 moderate post void residual. prostatic hypertrophy. 01/31/19: CTAP: pneumoperitoneum with ruptured viscus, suspected sigmoid diverticulitis with pelvic abscesses. clinical correlation and follow up recommended and 02/02/19: CTAP: complex collection in pelvic region compatible with diverticular abscess unchanged in size from prior study. previously noted small droplets of air compatible with pneumoperitoneum have resolved. Assessment/Plan 63 yo M w a h/o lymphoma in remission for 14 years, right sided nephrolithiasis s/p lithotripsy (7 years ago), and diverticulitis who presented with lower abdominal pain and was found to have perforated viscus/ perforated sigmoid diverticulitis. #Perforated sigmoid diverticulitis w / abscess collection -c/w zosyn (02/01) until cleared by sx for PO abx -IV tylenol for pain/fever -per sx team d/w IR, abscess is not accessible via procedure. however plan will be decided per sx -tolerating clear liquid diet -ID: Dr. Wyatt -Sx: Dr. Patel -have d/c IVF -will need colonoscopy in 6-8 weeks w/ Dr. Quiroz per GI -will likely need elective sigmoid resection once acute process resolves #NIDDM -c/w ISS, BGM ACHS #BPH -c/w flomax -bruce has been d/c -bladder scan ASDIR #hypothyroid -c/w synthroid #F/E/N have d/c IVF continue to follow lytes tolerating clears #PPX DVT: SCD's #Dispo plan per sx concerning abscess, still on IV abx will need colonoscopy in 6-8 weeks w/ Dr. Quiroz per GI will likely need elective sigmoid resection once acute process resolves
--- NOTE | 2019-02-05 20:40 | PN ---
Progress Note, Physician History of Present Illness: Patient with perforated diverticulitis, clinically sealed, with small pelvic abscess, not accessible to IR. Repeat CT from Sunday still showed abscess, though locules of air over liver had resolved. On IV abx per ID, seen and examined in bed. Also with chronic prostate issues. Suarez catheter now out, voiding ok per pt. Reports no pain, tolerating clears since yesterday. - Current Medication List Current Medications: Active Medications Acetaminophen (Ofirmev Injection -) 1,000 mg IVPB Q6H PRN PRN Reason: PAIN LEVEL 6-10 Last Admin: 02/04/19 01:25 Dose: 1,000 mg Piperacillin Sod/Tazobactam (Sod 3.375 gm/ Dextrose) 50 mls @ 100 mls/hr IVPB Q8H-IV [facility]; Protocol Last Admin: 02/05/19 17:23 Dose: 100 mls/hr Levothyroxine Sodium (Synthroid -) 125 mcg PO DAILY@0700 [facility] Last Admin: 02/05/19 06:15 Dose: 125 mcg Tamsulosin HCl (Flomax -) 0.8 mg PO HS [facility] Last Admin: 02/04/19 21:49 Dose: 0.8 mg - Objective Vital Signs: Vital Signs Temperature 98.1 F 02/05/19 19:53 Pulse Rate 72 02/05/19 19:53 Respiratory Rate 18 02/05/19 19:53 Blood Pressure 154/89 02/05/19 19:53 O2 Sat by Pulse Oximetry (%) 98 02/05/19 09:00 Constitutional: Yes: Well Nourished, No Distress, Calm Eyes: Yes: Conjunctiva Clear, EOM Intact HENT: Yes: Atraumatic, Normocephalic Gastrointestinal: Yes: Soft, Hernia (reducible umbilical). No: Distention, Tenderness, Tenderness, Epigastrium Genitourinary: Yes: Other (reports good stream today). No: Suarez Present, Incontinence Extremities: No: Cool, Cyanosis Integumentary: No: Jaundice, Rash Neurological: Yes: Alert, Oriented Labs: CBC, BMP 02/05/19 06:40 02/05/19 06:40 INR, PTT INR 1.34 (0.83-1.09) H 02/04/19 07:38 CMP Sodium 141 mmol/L (136-145) 02/05/19 06:40 Potassium 3.6 mmol/L (3.5-5.1) 02/05/19 06:40 Chloride 108 mmol/L (98-107) H 02/05/19 06:40 Carbon Dioxide 22 mmol/L (21-32) 02/05/19 06:40 Anion Gap 11 MMOL/L (8-16) 02/05/19 06:40 BUN 5.7 mg/dL (7-18) L 02/05/19 06:40 Creatinine 1.2 mg/dL (0.55-1.3) 02/05/19 06:40 Est GFR (CKD-EPI)AfAm 73.62 02/05/19 06:40 Est GFR (CKD-EPI)NonAf 63.52 02/05/19 06:40 Random Glucose 77 mg/dL (74-106) 02/05/19 06:40 Calcium 8.7 mg/dL (8.5-10.1) 02/05/19 06:40 Phosphorus 3.1 mg/dL (2.5-4.9) 02/05/19 06:40 Magnesium 2.1 mg/dL (1.8-2.4) 02/05/19 06:40 Total Bilirubin 1.4 mg/dL (0.2-1) H 02/03/19 06:30 Direct Bilirubin 0.3 mg/dL (0.0-0.2) H 02/02/19 05:40 AST 36 U/L (15-37) 02/03/19 06:30 ALT 54 U/L (13-61) 02/03/19 06:30 Alkaline Phosphatase 110 U/L (45-117) 02/03/19 06:30 Total Protein 7.0 g/dl (6.4-8.2) 02/03/19 06:30 Albumin 3.0 g/dl (3.4-5.0) L 02/03/19 06:30 Lipase 67 U/L (73-393) L 02/02/19 17:39 TSH 0.45 uIU/ml (0.358-3.74) 02/01/19 15:00 Problem List - Problems (1) Diverticulitis of colon with perforation Assessment/Plan: sigmoid diverticulitis with apparent sealed perforation and small pelvic abscess inaccessible to IR for drainage continue IV antibiotics per ID pain/tenderness essentially resolved tolerating clears soft, formed BM today will advance to low-residue diet in am clinically doing well may be able to switch to oral abx to complete course at home will need colonoscopy in 6-8 weeks, but may need imaging before that depending on symptoms to reevaluate for abscess resolution can discuss with patient's PMD tomorrow as well Code(s): K57.20 - DVTRCLI OF LG INT W PERFORATION AND ABSCESS W/O BLEEDING Qualifiers: Diverticulitis bleeding: without bleeding Qualified Code(s): K57.20 - Diverticulitis of large intestine with perforation and abscess without bleeding (2) Suprapubic pain Assessment/Plan: resolved Code(s): R10.2 - PELVIC AND PERINEAL PAIN (3) Dehydration Assessment/Plan: improved Code(s): E86.0 - DEHYDRATION (4) Benign prostatic hyperplasia with incomplete bladder emptying Code(s): N40.1 - BENIGN PROSTATIC HYPERPLASIA WITH LOWER URINARY TRACT SYMP; R39.14 - FEELING OF INCOMPLETE BLADDER EMPTYING (5) Hypothyroidism Code(s): E03.9 - HYPOTHYROIDISM, UNSPECIFIED Qualifiers: Hypothyroidism type: unspecified Qualified Code(s): E03.9 - Hypothyroidism , unspecified (6) H/O lymphoma Code(s): Z85.79 - PRSNL HX OF MALIG NEOPLM OF LYMPHOID, HEMATPOETC & REL TISS
[2019-02-05] MEDS: ACETAMINOPHEN 325 MG TABLET (FP) PO PRN (22:18)
[2019-02-05] MEDS: TAMSULOSIN HCL 0.4 MG CAP PO SCH (22:18)
[2019-02-06] MEDS ORDERED: PIPERACILLIN/TAZOBACTAM 3.375 GM VIAL IVPB ONE ×3 (02:14→17:19)
[2019-02-06] MEDS ORDERED: DEXTROSE 5%-WATER - 50 ML IVPB ONE ×3 (02:14→17:19)
[2019-02-06] MEDS: PIPERACILLIN/TAZOB 3.375 GM 3.375 GM in DEXTROSE 5%-WATER - 50 ML IVPB SCH ×3 (02:25→17:25)
[2019-02-06] MEDS: LEVOTHYROXINE NA 125 MCG TABLET (FP) PO SCH (06:02)
[2019-02-06 07:34] LABS: BASO % 0.5 % (0-2.0); EOS % 4.7 % (0-4.5); HEMATOCRIT 48.4 % (35.4-49); HEMOGLOBIN 16.3 GM/dL (11.7-16.9); LYMPH % 20.7 % (8-40); MCH 29.8 pg (25.7-33.7); MCHC 33.7 g/dl (32.0-35.9); MEAN CELL VOLUME 88.5 fl (80-96); MEAN PLT VOLUME 10.5 fl (7.5-11.1); MONO % 6.7 % (3.8-10.2); NEUT % 67.4 % (42.8-82.8); PLATELET COUNT 162 K/MM3 (134-434); RBC 5.46 M/mm3 (4.00-5.60); RDW 13.4 % (11.9-15.9); WHITE BLOOD COUNT 8.3 K/mm3 (4.0-10.0)
[2019-02-06 07:56] LABS: BLOOD UREA NITROGEN 5.7 mg/dL (7-18); CALCIUM 9.3 mg/dL (8.5-10.1); CREATININE 1.3 mg/dL (0.55-1.3); MAGNESIUM 2.3 mg/dL (1.8-2.4); PHOSPHOROUS 3.5 mg/dL (2.5-4.9); POTASSIUM 3.9 mmol/L (3.5-5.1)
--- NOTE | 2019-02-06 09:02 | PN ---
Progress Note, Physician History of Present Illness: stable no new issues - Current Medication List Current Medications: Active Medications Acetaminophen (Tylenol -) 650 mg PO Q6H PRN PRN Reason: PAIN LEVEL 6-10 Last Admin: 02/05/19 22:18 Dose: 650 mg Piperacillin Sod/Tazobactam (Sod 3.375 gm/ Dextrose) 50 mls @ 100 mls/hr IVPB Q8H-IV [facility]; Protocol Last Admin: 02/06/19 02:25 Dose: 100 mls/hr Levothyroxine Sodium (Synthroid -) 125 mcg PO DAILY@0700 [facility] Last Admin: 02/06/19 06:02 Dose: 125 mcg Tamsulosin HCl (Flomax -) 0.8 mg PO HS [facility] Last Admin: 02/05/19 22:18 Dose: 0.8 mg - Objective Vital Signs: Vital Signs Temperature 98 F 02/06/19 06:00 Pulse Rate 60 02/06/19 06:00 Respiratory Rate 17 02/06/19 06:00 Blood Pressure 127/67 02/06/19 06:00 O2 Sat by Pulse Oximetry (%) 99 02/05/19 21:00 Constitutional: Yes: No Distress, Calm Cardiovascular: Yes: S1, S2 Respiratory: Yes: Regular, CTA Bilaterally Gastrointestinal: Yes: Normal Bowel Sounds, Soft Musculoskeletal: Yes: WNL Extremities: Yes: WNL Neurological: Yes: Alert, Oriented Psychiatric: Yes: Alert, Oriented Labs: CBC, BMP 02/06/19 06:35 02/06/19 06:35 INR, PTT INR 1.34 (0.83-1.09) H 02/04/19 07:38 Assessment/Plan Problem List - Problems (1) Diverticulitis of colon with perforation Code(s): K57.20 - DVTRCLI OF LG INT W PERFORATION AND ABSCESS W/O BLEEDING Qualifiers: Diverticulitis bleeding: without bleeding Qualified Code(s): K57.20 - Diverticulitis of large intestine with perforation and abscess without bleeding (2) Suprapubic pain Code(s): R10.2 - PELVIC AND PERINEAL PAIN (3) Dehydration Code(s): E86.0 - DEHYDRATION (4) Benign prostatic hyperplasia with incomplete bladder emptying Code(s): N40.1 - BENIGN PROSTATIC HYPERPLASIA WITH LOWER URINARY TRACT SYMP; R39.14 - FEELING OF INCOMPLETE BLADDER EMPTYING (5) Hypothyroidism Code(s): E03.9 - HYPOTHYROIDISM, UNSPECIFIED Qualifiers: Hypothyroidism type: unspecified Qualified Code(s): E03.9 - Hypothyroidism , unspecified (6) H/O lymphoma Code(s): Z85.79 - PRSNL HX OF [facility] NEOPLM OF LYMPHOID, HEMATPOETC & REL TISS plan once patient tolerates diet switch to oral augmentin for a week
--- NOTE | 2019-02-06 16:03 | PN ---
Progress Note (short form) - Note Progress Note: Hospitalist Medicine Seen in [facility]. In good spirits, happy to be eating again. Vitals 02/06/19 14:35 Temperature 97.8 F Pulse Rate 77 Respiratory 18 Rate Blood Pressure 146/76 Physical Exam general: resting comfortably, in NAD. pleasant HEENT: NCAT neck: supple cardio: S1, S2, RRR. 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 moderate post void residual. prostatic hypertrophy. 01/31/19: CTAP: pneumoperitoneum with ruptured viscus, suspected sigmoid diverticulitis with pelvic abscesses. clinical correlation and follow up recommended and 02/02/19: CTAP: complex collection in pelvic region compatible with diverticular abscess unchanged in size from prior study. previously noted small droplets of air compatible with pneumoperitoneum have resolved. Assessment/Plan 63 yo M w a h/o lymphoma in remission for 14 years, right sided nephrolithiasis s/p lithotripsy (7 years ago), and diverticulitis who presented with lower abdominal pain and was found to have perforated viscus/ perforated sigmoid diverticulitis. #Perforated sigmoid diverticulitis w / abscess collection -completed 5 days IV abx (zosyn), now on augmentin x 7 day course (03/11) -IV tylenol for pain/fever -per sx team d/w IR, abscess is not accessible via procedure. however plan will be decided per sx -tolerating low residue diet -ID: Dr. Waytt -Sx: Dr. Patel -have d/c IVF -will need colonoscopy in 6-8 weeks w/ Dr. Quiroz per GI -will likely need elective sigmoid resection once acute process resolves #NIDDM -c/w ISS, BGM ACHS #BPH -c/w flomax -bruce has been d/c -bladder scan ASDIR #hypothyroid -c/w synthroid #F/E/N have d/c IVF continue to follow lytes low residue diet #PPX DVT: SCD's #Dispo plan per sx concerning abscess, has been changed to PO diet. anticipate d/c 24- 48hrs will need colonoscopy in 6-8 weeks w/ Dr. Quiroz per GI will likely need elective sigmoid resection once acute process resolves
--- NOTE | 2019-02-06 16:41 | PN ---
Progress Note, Physician History of Present Illness: Patient with perforated diverticulitis, clinically sealed, with small pelvic abscess, not accessible to IR. On IV abx per ID, seen and examined in [facility] with family. Also with chronic prostate issues, voiding ok per pt. Suarez had been used initially, out for couple days now. Reports no pain, tolerating low fiber diet since breakfast. Having soft stools, becoming more formed. - Current Medication List Current Medications: Active Medications Acetaminophen (Tylenol -) 650 mg PO Q6H PRN PRN Reason: PAIN LEVEL 6-10 Last Admin: 02/05/19 22:18 Dose: 650 mg Amoxicillin/Clavulanate Potassium (Augmentin - 875mg Tablet) 1 tab [facility] Levothyroxine Sodium (Synthroid -) 125 mcg PO DAILY@0700 [facility] Last Admin: 02/06/19 06:02 Dose: 125 mcg Tamsulosin HCl (Flomax -) 0.8 mg PO HS [facility] Last Admin: 02/05/19 22:18 Dose: 0.8 mg - Objective Vital Signs: Vital Signs Temperature 97.8 F 02/06/19 14:35 Pulse Rate 77 02/06/19 14:35 Respiratory Rate 18 02/06/19 14:35 Blood Pressure 146/76 02/06/19 14:35 O2 Sat by Pulse Oximetry (%) 99 02/06/19 09:00 Constitutional: Yes: Well Nourished, No Distress, Calm Eyes: Yes: Conjunctiva Clear, EOM Intact HENT: Yes: Atraumatic, Normocephalic Gastrointestinal: Yes: Soft, Hernia (small reducible umbilical). No: Distention , Tenderness, Tenderness, Epigastrium Extremities: No: Cool, Cyanosis Integumentary: No: Jaundice, Rash Neurological: Yes: Alert, Oriented Labs: CBC, BMP 02/06/19 06:35 02/06/19 06:35 Cr up slightly last 2 days H/H up a little also Problem List - Problems (1) Diverticulitis of colon with perforation Assessment/Plan: sigmoid diverticulitis with sealed perforation and small pelvic abscess inaccessible to IR for drainage pain/tenderness resolved tolerating diet soft, more formed BMs continue antibiotics per ID ok to switch to Augmentin 875mg bid x 7 days on discharge home discussed at length with patient and family (40 mins), and spoke with Dr. Quiroz by phone as well: plan for d/c home tomorrow on oral antibiotics for another week low fiber diet for 1-2 weeks, then work back to high fiber diet (25-30g fiber daily) WITH plenty of water daily minimize caffeine consumption/drink more water when having caffeinated drinks will need repeat CT abdomen/pelvis with PO and IV contrast in a month (early March) to reassess area of abscess need to ensure passage of PO contrast into distal colon (or starting to evacuate ) before scanning, about 2 hrs after drinking? or more... preferably would have CT done at [facility] pt to follow up with PMD Dr. Quiroz next week, and in early March to order CT call for appointment with Dr. Patel for after CT is done (March), to discuss results and possible surgical options gave him my card will also need colonoscopy 6-8 weeks after this episode - Dr. Quiroz will schedule pt also to f/u with Urologist Dr. Conway regarding prostate issues, take CD of radiology studies including bladder/renal US with him to that appt. discussed with Dr. Owusu of primary team Code(s): K57.20 - DVTRCLI OF LG INT W PERFORATION AND ABSCESS W/O BLEEDING Qualifiers: Diverticulitis bleeding: without bleeding Qualified Code(s): K57.20 - Diverticulitis of large intestine with perforation and abscess without bleeding (2) Suprapubic pain Assessment/Plan: resolved Code(s): R10.2 - PELVIC AND PERINEAL PAIN (3) Dehydration Assessment/Plan: labs with slight increases in H/H, Cr encouraged water intake, more noncaffeinated fluids Code(s): E86.0 - DEHYDRATION (4) Benign prostatic hyperplasia with incomplete bladder emptying Assessment/Plan: continue Flomax f/u with Urology Code(s): N40.1 - BENIGN PROSTATIC HYPERPLASIA WITH LOWER URINARY TRACT SYMP; R39.14 - FEELING OF INCOMPLETE BLADDER EMPTYING (5) Hypothyroidism Assessment/Plan: continue home med Code(s): E03.9 - HYPOTHYROIDISM, UNSPECIFIED Qualifiers: Hypothyroidism type: unspecified Qualified Code(s): E03.9 - Hypothyroidism , unspecified (6) H/O lymphoma Code(s): Z85.79 - PRSNL HX OF MALIG NEOPLM OF LYMPHOID, HEMATPOETC & REL TISS
[2019-02-06] MEDS ORDERED: AMOX TR/POT CLAV 875MG/125MG TABLETS (FP) PO SCH (17:30)
[2019-02-06] MEDS: ACETAMINOPHEN 325 MG TABLET (FP) PO PRN (21:26)
[2019-02-06] MEDS: TAMSULOSIN HCL 0.4 MG CAP PO SCH (21:26)
[2019-02-07] MEDS ORDERED: DEXTROSE 5%-WATER - 50 ML IVPB ONE ×3 (02:17→16:00)
[2019-02-07] MEDS ORDERED: PIPERACILLIN/TAZOBACTAM 3.375 GM VIAL IVPB ONE ×3 (02:17→16:00)
[2019-02-07] MEDS: PIPERACILLIN/TAZOB 3.375 GM 3.375 GM in DEXTROSE 5%-WATER - 50 ML IVPB SCH ×4 (02:23→17:37)
[2019-02-07] MEDS: LEVOTHYROXINE NA 125 MCG TABLET (FP) PO SCH (07:08)
--- NOTE | 2019-02-07 09:08 | PN ---
Progress Note, Physician - Current Medication List Current Medications: Active Medications Acetaminophen (Tylenol -) 650 mg PO Q6H PRN PRN Reason: PAIN LEVEL 6-10 Last Admin: 02/06/19 21:26 Dose: 650 mg Piperacillin Sod/Tazobactam (Sod 3.375 gm/ Dextrose) 50 mls @ 100 mls/hr IVPB Q8H-IV [facility]; Protocol Last Admin: 02/07/19 02:23 Dose: 100 mls/hr Levothyroxine Sodium (Synthroid -) 125 mcg PO DAILY@0700 [facility] Last Admin: 02/07/19 07:08 Dose: 125 mcg Tamsulosin HCl (Flomax -) 0.8 mg PO HS [facility] Last Admin: 02/06/19 21:26 Dose: 0.8 mg - Objective Vital Signs: Vital Signs Temperature 98.1 F 02/07/19 06:00 Pulse Rate 58 L 02/07/19 06:00 Respiratory Rate 17 02/07/19 06:00 Blood Pressure 116/57 L 02/07/19 06:00 O2 Sat by Pulse Oximetry (%) 100 02/06/19 21:00 Labs: CBC, BMP 02/06/19 06:35 02/06/19 06:35 INR, PTT INR 1.34 (0.83-1.09) H 02/04/19 07:38
[2019-02-07 13:49] VITALS: BP 145/84; PULSE 76; TEMP 97.9
--- NOTE | 2019-02-07 20:17 | DS ---
Physical Exam: SUBJECTIVE: Patient seen and examined at bedside. Resting comfortably. Without complaint. OBJECTIVE: Vital Signs Period Temp Pulse Resp BP Sys/Lambert Pulse Ox Last 24 Hr 97.8 F-98.1 F 58-77 17-18 116-145/57-84 97-100 Physical Exam general: resting comfortably, in NAD. pleasant HEENT: NCAT neck: supple cardio: S1, S2, RRR. 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 LABS Laboratory Tests 01/31/19 02/01/19 02/02/19 11:50 07:53 17:39 WBC 11.3 H 8.7 10.8 H Hgb 15.7 14.2 16.3 Hct 46.9 41.8 49.3 H D Plt Count 130 L D 119 L 165 D 02/03/19 02/04/19 02/05/19 06:30 07:38 06:40 WBC 7.5 6.2 9.3 Hgb 15.1 15.0 15.9 Hct 45.0 45.1 47.4 Plt Count 141 132 L 154 02/06/19 06:35 WBC 8.3 Hgb 16.3 Hct 48.4 Plt Count 162 01/31/19 02/01/19 02/04/19 16:18 07:53 07:38 PT with INR 15.00 H 18.20 H 15.80 H INR 1.27 H 1.54 H 1.34 H PTT (Actin FS) 28.1 28.8 01/31/19 02/01/19 02/01/19 11:50 07:53 15:00 Sodium 139 140 141 Potassium 4.1 4.0 4.1 Chloride 109 H 107 107 Carbon Dioxide 25 Anion Gap 6 L 7 L 8 BUN 22.4 H 15.0 12.6 Creatinine 1.1 1.1 Total Bilirubin 1.6 H 2.9 H 3.1 H Direct Bilirubin Total Protein 7.0 6.1 L Albumin 3.2 L 2.7 L 3.1 L Lipase TSH 0.45 02/01/19 02/02/19 02/02/19 15:00 05:40 05:40 Sodium 141 Potassium 4.3 Chloride 108 H Carbon Dioxide 27 Anion Gap 5 L BUN 11.2 Creatinine Total Bilirubin 1.3 H Direct Bilirubin 0.6 H 0.3 H Total Protein 6.1 L Albumin 2.7 L Lipase TSH 02/02/19 02/03/19 02/04/19 17:39 06:30 07:38 Sodium 140 140 142 Potassium 4.8 4.1 Chloride 106 108 H 109 H Carbon Dioxide 28 Anion Gap BUN 11.0 8.6 8.4 Creatinine 1.1 1.1 1.2 Total Bilirubin 1.6 H 1.4 H Direct Bilirubin Total Protein Albumin 3.0 L Lipase 67 L TSH 02/05/19 02/06/19 06:40 06:35 Sodium 141 140 Potassium 3.6 3.9 Chloride 108 H 106 Carbon Dioxide Anion Gap BUN 5.7 L 5.7 L Creatinine 1.2 1.3 Total Bilirubin Direct Bilirubin Total Protein Albumin Lipase TSH Microbiology 01/31/19 11:50 Urine - Urine Clean Catch Urine Culture - Final NO GROWTH OBTAINED Imaging 01/31/19: Renal/bladder sono: morphologically normal kidneys and urinary bladder with no evidence of hydronephrosis or acute pathology. moderate post void residual. prostatic hypertrophy. 01/31/19: CTAP: pneumoperitoneum with ruptured viscus, suspected sigmoid diverticulitis with pelvic abscesses. clinical correlation and follow up recommended and 02/02/19: CTAP: complex collection in pelvic region compatible with diverticular abscess unchanged in size from prior study. previously noted small droplets of air compatible with pneumoperitoneum have resolved. HOSPITAL COURSE: Date of Admission:01/31/19 Date of Discharge: 02/07/19 63 yo M w a h/o lymphoma in remission for 14 years, right sided nephrolithiasis s/p lithotripsy (7 years ago), and diverticulitis who presented with lower abdominal pain and was found to have perforated viscus/ perforated sigmoid diverticulitis. #Perforated sigmoid diverticulitis w / abscess collection -completed 5 days IV abx (zosyn), d/c on IV augmentin course. (BID x 7 days) -IV tylenol for pain/fever -per sx team d/w IR, abscess is not accessible via procedure. will need repeat CTAP - 1 month ago and close f/u with Dr. Patel -tolerating low residue diet -ID: Dr. Wyatt -Sx: Dr. Patel -have d/c IVF and bruce -will need colonoscopy in 6-8 weeks w/ Dr. Quiroz per GI -will likely need elective sigmoid resection once acute process resolves #NIDDM -c/w ISS, BGM ACHS #BPH -c/w flomax -bruce has been d/c -bladder scan ASDIR #hypothyroid -c/w synthroid #F/E/N have d/c IVF continue to follow lytes low residue diet #PPX DVT: SCD's #Dispo plan per sx concerning abscess, has been changed to PO diet. anticipate d/c 24- 48hrs will need colonoscopy in 6-8 weeks w/ Dr. Quiroz per GI will likely need elective sigmoid resection once acute process resolves Minutes to complete discharge: 45 Discharge Summary Problems reviewed: Yes Reason For Visit: DIVERTICULITIS OF LARGE INTESTINE WITH PERFORATION Condition: Stable - Instructions Diet, Activity, Other Instructions: You were in the hospital because you were found to have a diverticular perforation and an abdominal abscess. You were evaluated by a primary team, an infectious disease doctor and the surgery team. At this time, no procedures or surgery have been recommended for the abscess. You were managed in the hospital with IV antibiotics, bowel rest (NPO), and symptomatic treatment. You improved and are being discharged home. Medications: 1. Please take the antibiotic, augmentin 875 mg twice a day, for the next 7 days (starting with the first dose tonight.) This is to help your abscess and prevent infection. 2. You should take flomax to help with urination. Take one pill daily. 3. You may continue your other home medications. Diet You must have a low fiber diet for 1-2 weeks Then work back to a high fiber diet (25-30 grams daily) with plenty of water. Minimize caffeine consumption Testing You will need to have a colonoscopy in 6-[address] Quiroz to check on the status of the perforation. You will also need to have a repeat CT scan of your abdomen/pelvis with IV contrast in 1 month (early March) to check on the abscess. We would prefer if this was done at [facility] so we have your records. You will need to see Dr. Patel immediately after, to discuss the results. Records We will give you a CD of images from your stay to take to your primary care doctor. Follow up visits Please follow with the following physicians after your discharge: -Dr. Patel, the surgeon who evaluated you in the hospital - 1 month -Dr. Wyatt, the infectious disease doctor - 1 week -Dr. Jax Quiroz, your primary care provider (and GI) - 3-5 days after your discharge -Dr. Katherine Conway, your urologist- 1 week to discuss your prostate health If you develop a fever, abdominal pain or discomfort, you must go to the hospital or call your doctor immediately. This is very important. Referrals: Dr. Man [Other] - 1 Week Damián Wyatt MD [Staff Physician] - 1 Week Jax Quiroz MD [Primary Care Provider] - 02/11/19 Dennis Patel MD [Staff Physician] - 1 Month Disposition: HOME - Home Medications Comprehensive Discharge Medication List: Ambulatory Orders Levothyroxine [Synthroid -] 125 mcg PO DAILY@0700 #10 tablet 08/07/11 Tamsulosin HCl 0.8 mg PO HS 01/31/19 Amoxicillin/Potassium Clav [Augmentin 875-125 Tablet] 1 each PO BID #14 tablet 02/06/19 This patient is new to me today: No Emergency Visit: No Critical Care patient: No - Discharge Referral Referred to [facility] Med [facility] No ATTENDING PHYSICIAN STATEMENT I saw and evaluated the patient. I reviewed the resident's note and discussed the case with the resident. I agree with the resident's findings and plan as documented. SUBJECTIVE: OBJECTIVE: ASSESSMENT AND PLAN:
== END 2019-02-07 18:28 | disposition home or self-care (01) | DRG 392 ==
LOC: JER 10:43 → JERBED 15:30 → J7W 17:45
PROVIDERS: ADMIT Internal Medicine; ATTEND Internal Medicine
DX: K57.20 Diverticulitis of large intestine with perforation and abscess without bleeding (principal); E03.9 Hypothyroidism, unspecified; M54.9 Dorsalgia, unspecified; K42.9 Umbilical hernia without obstruction or gangrene; N40.1 Benign prostatic hyperplasia with lower urinary tract symptoms; R39.14 Feeling of incomplete bladder emptying; E86.0 Dehydration; E88.09 Other disorders of plasma-protein metabolism, not elsewhere classified; E11.9 Type 2 diabetes mellitus without complications; R10.2 Pelvic and perineal pain; Z87.11 Personal history of peptic ulcer disease; D69.6 Thrombocytopenia, unspecified; Z87.442 Personal history of urinary calculi; Z85.79 Personal history of other malignant neoplasms of lymphoid, hematopoietic and related tissues
CPT/HCPCS: 36415; 74177-TC; 76705-TC; 76775-TC; 76856-TC; 80048; 80053; 81003; 82248; 83690; 83735; 84100; 84443; 85025; 85027; 85610; 85730; 86803; 86850; 86900; 86901; 87086; 87529; 93306-TC; 99282-25; J0131; Q9967

== ENCOUNTER 2020-09-07 11:08 | Emergency (ER) | payer BC, OTHER ==
[2020-09-07 11:13] VITALS: BP 146/82; PULSE 90; TEMP 98.1; BMI 25.4
[2020-09-07 12:24] LABS: PH,URINE 8.5 (5.0-8.0); URINE APPEARANCE Clear; URINE BILIRUBIN Negative (NEGATIVE); URINE COLOR Yellow; URINE GLUCOSE (UA) Trace (NEGATIVE); URINE KETONE Negative (NEGATIVE); URINE LEUK ESTERASE 3+ (NEGATIVE); URINE NITRITE Negative (NEGATIVE); URINE PROTEIN 3+ (NEGATIVE); URINE UROBILINOGEN 0.2 mg/dL (0.2-1.0)
== END 2020-09-07 13:26 | disposition home or self-care (01) ==
LOC: JERFT 11:08
DX: N39.0 Urinary tract infection, site not specified (principal)
CPT/HCPCS: 81003; 87086; 87186; 99283-25

== ENCOUNTER 2020-09-19 09:51 | Emergency (ER) | payer OTHER ==
[2020-09-19 10:02] VITALS: BP 128/73; PULSE 74; TEMP 97.7; BMI 25.4
[2020-09-19 10:37] LABS: EPI CELLS 22 /uL (0-25.1); HYALINE CASTS 4 /uL (0-3.1); PH,URINE 7.5 (5.0-8.0); URINE APPEARANCE TURBID; URINE BACTERIA >9,000 /uL (0-1359); URINE BILIRUBIN NEGATIVE (NEGATIVE); URINE COLOR YELLOW; URINE GLUCOSE (UA) NEGATIVE (NEGATIVE); URINE KETONE TRACE (NEGATIVE); URINE LEUK ESTERASE 3+ (NEGATIVE); URINE NITRITE NEGATIVE (NEGATIVE); URINE PROTEIN 3+ (NEGATIVE); URINE RBC 262 /uL (0-23.9); URINE WBC 13001 /uL (0-25.8)
== END 2020-09-19 12:51 | disposition home or self-care (01) ==
LOC: JER 09:51
DX: N30.01 Acute cystitis with hematuria (principal)
CPT/HCPCS: 76856-TC; 81003; 87086; 87186; 99284-25

== ENCOUNTER 2022-03-31 11:54 | Emergency (ER) | payer OTHER ==
[2022-03-31 11:59] VITALS: BP 140/70; PULSE 98; RESP 20; TEMP 97.4; BMI 21.4
== END 2022-03-31 13:43 | disposition home or self-care (01) ==
LOC: JERFT 11:54
DX: M79.605 Pain in left leg (principal)
CPT/HCPCS: 99281-25

== ENCOUNTER 2024-07-20 03:55 | Emergency (ER) | payer MEDICARE ==
[2024-07-20 03:58] VITALS: BMI 24.3
[2024-07-20] MEDS ORDERED: ACETAMINOPHEN 325 MG TABLET (FP) ONE (04:56)
[2024-07-20] MEDS: ACETAMINOPHEN 325 MG TABLET (FP) PO ONE (04:58)
[2024-07-20 05:14] LABS: ABSOLUTE IMMATURE GRANULOCYTES 0.08 x10^3/uL (0.0-0.031); BASOPHILS # 0.02 x10^3/uL (0.01-0.08); EOSINOPHIL % 0.3 % (0.8-7.0); EOSINOPHILS # 0.04 x10^3/uL (0.04-0.54); HEMATOCRIT 45.3 % (40.1-51.0); MCHC 33.1 g/dl (32.3-36.5); MEAN PLT VOLUME 11.6 fl (9.4-12.4); MONOCYTE # 0.48 x10^3/uL (0.30-0.82); MONOCYTE % 4.2 % (5.3-12.2); PLATELET COUNT 118 x10^3/uL (163-337); RDW 12.4 % (12.2-16.4)
[2024-07-20 05:18] LABS: EPI CELLS >36 /uL (0-25.1); HYALINE CASTS 1 /uL (0-3.1); URINE APPEARANCE CLEAR; URINE BACTERIA 562 /uL (0-1359); URINE BILIRUBIN NEGATIVE (NEGATIVE); URINE COLOR YELLOW; URINE GLUCOSE (UA) NEGATIVE (NEGATIVE); URINE KETONE NEGATIVE (NEGATIVE); URINE LEUK ESTERASE 1+ (NEGATIVE); URINE NITRITE NEGATIVE (NEGATIVE); URINE PROTEIN 1+ (NEGATIVE); URINE RBC 7 /uL (0-23.9); URINE UROBILINOGEN 0.2 mg/dL (0.2-1.0); URINE WBC 57 /uL (0-25.8)
[2024-07-20 05:25] LABS: POTASSIUM 4.8 mmol/L (3.5-5.1)
[2024-07-20 05:27] LABS: ALBUMIN 3.8 g/dl (3.4-5.0); CALCIUM 9.5 mg/dL (8.5-10.1)
[2024-07-20 05:28] LABS: BLOOD UREA NITROGEN 23.5 mg/dL (7-18); MAGNESIUM 2.2 mg/dL (1.8-2.4)
[2024-07-20 05:31] LABS: CREATININE 1.4 mg/dL (0.55-1.3)
[2024-07-20 05:32] LABS: TOT PROT 7.5 g/dl (6.4-8.2)
[2024-07-20] MEDS: SODIUM CHLORIDE 0.9% 1000 ML INFUS.BAG IV ONE (08:03)
[2024-07-20 10:30] VITALS: BP 158/68; PULSE 71; RESP 16; TEMP 97.8
[2024-07-20 18:25] LABS: URINE CRYSTALS SEEN /hpf
== END 2024-07-20 10:35 | disposition home or self-care (01) ==
LOC: JER 03:55
DX: M54.50 Low back pain, unspecified (principal); G89.29 Other chronic pain; R23.1 Pallor; R68.83 Chills (without fever); R00.1 Bradycardia, unspecified
CPT/HCPCS: 36415; 74176-TC; 80053; 81003; 83735; 85025; 86850; 86900; 86901; 87086; 93005; 93010; 99285-25